=== PATIENT | male | born 1975 | race American Indian/Alaskan Native ===

== ENCOUNTER 2019-04-08 07:38 | Inpatient (IN) | payer MEDICAID ==
[2019-04-08] MEDS ORDERED: DECADRON 20 MG in NACL 0.9% 50 ML IV ONE (08:06)
[2019-04-08] MEDS ORDERED: PEPCID PO ONE (08:06)
[2019-04-08] MEDS ORDERED: BENADRYL IV ONE (08:06)
[2019-04-08] MEDS ORDERED: KETALAR IV ONE (08:07)
[2019-04-08] MEDS ORDERED: DIPRIVAN 10 MG/ML IV ONE ×2 (08:15→09:39)
[2019-04-08] MEDS ORDERED: PEPCID IV ONE (08:21)
[2019-04-08] MEDS: NORMODYNE IV ONE ×2 (08:28→08:53)
[2019-04-08] MEDS ORDERED: NORMODYNE IV ONE ×3 (08:29→09:20)
[2019-04-08] MEDS ORDERED: DIPRIVAN 10 MG/ML 1,000 MG/100 ML BOTTLE IV ONE ×2 (08:40→14:02)
[2019-04-08] MEDS: DIPRIVAN 10 MG/ML 1,000 MG/100 ML BOTTLE IV SCH ×2 (08:50→21:07)
[2019-04-08] MEDS: DIPRIVAN 10 MG/ML IV ONE ×2 (08:52→09:39)
[2019-04-08] MEDS ORDERED: SUBLIMAZE IV PRN (08:53)
[2019-04-08] MEDS: fentaNYL DRIP Premix 2,000 MCG/100 ML BAG IV SCH (09:47)
--- NOTE | 2019-04-08 09:53 | Emergency Department Report ---
ED General Adult HPI - General Chief complaint: Sore Throat Stated complaint: THROAT SWELLING/PAIN Time Seen by Provider: 04/08/19 07:59 Source: patient, family Mode of arrival: Ambulatory Limitations: Other - History of Present Illness Initial comments: 44 year old man who was apparently exposed to poison IV this week. He developed a rash and swelling by Tuesday. On Tuesday he had some facial puffiness and some swelling in his neck and apparent hives. By this morning the mother noted that the swelling of the neck was appreciably worse. She thinks that it is progressive since he woke up this morning. Patient is able to phonate and is not drooling. He has significant neck swelling especially on the right. He feels it is getting worse as well. Apparently he has some sort of developmental delay not otherwise specified. Mother states to be careful because if he becomes agitated he can get quite violent. Patient is not agitated at the time of my encounter. He is cooperative. -: Gradual, days(s) Location: face, neck, upper extremity Severity scale (0 -10): 0 Associated Symptoms: denies other symptoms - Related Data Allergies Allergy/AdvReac Type Severity Reaction Status Date / Time No Known Allergies Allergy Unverified 04/08/19 07:38 ED Review of Systems ROS: Stated complaint: THROAT SWELLING/PAIN Other details as noted in HPI Constitutional: denies: chills, fever Eyes: denies: eye pain, eye discharge, vision change ENT: denies: ear pain, throat pain Respiratory: denies: cough, shortness of breath, wheezing Cardiovascular: denies: chest pain, palpitations Endocrine: no symptoms reported Gastrointestinal: denies: abdominal pain, nausea, diarrhea Genitourinary: denies: urgency, dysuria Musculoskeletal: denies: back pain, joint swelling, arthralgia Skin: as per HPI, rash, lesions, pruritus, other Neurological: denies: headache, weakness, paresthesias Psychiatric: denies: anxiety, depression Hematological/Lymphatic: denies: easy bleeding, easy bruising ED Past Medical Hx - Past Medical History Additional medical history: SPECIAL NEEDS - Surgical History Past Surgical History?: No - Social History Smoking Status: Never Smoker Substance Use Type: None ED Physical Exam - General Limitations: Other General appearance: alert, in no apparent distress - Head Head exam: Present: atraumatic, normocephalic - Eye Eye exam: Present: normal appearance, periorbital swelling. Absent: scleral icterus - ENT ENT exam: Present: normal orophraynx (tongue is not swollen), mucous membranes moist, other (there is a bit of edema in the right soft palate and tonsillar area. The uvula is midline however and the airway is patent) - Neck Neck exam: Present: normal inspection, other (3+ edema submandibular and involving the right side of the neck somewhat indurated). Absent: tenderness, meningismus - Respiratory Respiratory exam: Present: normal lung sounds bilaterally. Absent: respiratory distress - Cardiovascular Cardiovascular Exam: Present: regular rate, normal rhythm. Absent: systolic murmur, diastolic murmur, rubs, gallop - GI/Abdominal GI/Abdominal exam: Present: soft, normal bowel sounds. Absent: distended, tenderness, guarding, rebound, rigid - Rectal Rectal exam: Present: deferred - Extremities Exam Extremities exam: Present: normal inspection - Back Exam Back exam: Present: normal inspection - Neurological Exam Neurological exam: Present: alert, oriented X3, CN II-XII intact. Absent: motor sensory deficit - Psychiatric Psychiatric exam: Present: normal affect, normal mood - Skin Skin exam: Present: warm, dry, intact, normal color, rash, other (diffuse urticaria and angioedema of the neck some of the throat) ED Course Vital Signs 04/08/19 04/08/19 04/08/19 07:39 08:28 08:53 Temperature 97.6 F Pulse Rate 98 H 132 H 111 H Respiratory 20 Rate Blood Pressure 214/120 210/111 179/102 O2 Sat by Pulse 99 Oximetry - Reevaluation(s) Reevaluation #1: It was decided that the patient undergo rapid sequence intubation electively. He was observed to have progressive swelling in the emergency department even over this short course of time pending intubation. He was placed in an acute care room. He was monitored. Informed consent was obtained from his mother verbally. With the patient continuously monitored and supplemental oxygen, I proceeded with the process of sedation. The patient required management of his blood pressure as well as labetalol. He was given ketamine which was well tolerated as well as propofol. He continued to have a fair amount of trismus. However although he had some snoring there was no obvious evidence of airway compromise. He was just given succinylcholine. Via direct laryngoscopy with a Mac 4 blade the patient was intubated without difficulty 7.5 Irish endotracheal tube. I remained at the head of the bed sheet closely manage the patient's sedation and hypertension. He was given a bolus propofol and additional labetalol. He never desaturated. A fentanyl drip was added to a propofol drip to achieve good sedation. He was admitted to the hospitalist service in stable condition. 4 04/08/19 09:54 04/08/19 09:58 - Intubation Time Out Performed: Yes Sedative: Versed (ketamine and propofol) Paralytic: Succinylcholine Laryngoscope: Lora Size: 4 ET Tube Size: 7.5 Tube Secured Depth (cm): 23 Tube Secured Location: teeth Tube Placement Confirmation: visualized tube passing t Patient Tolerated Procedure: well Intubation Complications: none ED Medical Decision Making - Radiology Data Radiology results: image reviewed (endotracheal tube below the head of the clavicles in good position. No acute pulmonary process seen) Critical Care Time: Yes Critical care time in (mins) excluding proc time.: 90 Critical care attestation.: If time is entered above; I have spent that time in minutes in the direct care of this critically ill patient, excluding procedure time. ED Disposition Clinical Impression: Compromised airway Angioedema Qualifiers: Encounter type: initial encounter Qualified Code(s): T78.3XXA - Angioneurotic edema, initial encounter Disposition: OP ADMIT IP TO THIS HOSP Is pt being admited?: Yes Does the pt Need Aspirin: No Condition: Stable Referrals: SYLVESTER MORAN MD [Primary Care Provider] - 3-5 Days Time of Disposition: 10:25
[2019-04-08] MEDS ORDERED: VERSED IV NR (10:00)
[2019-04-08] MEDS ORDERED: QUELICIN IV ONE (10:01)
[2019-04-08] MEDS ORDERED: ARTIFICIAL TEARS OPHTH OINT OU PRN (10:04)
[2019-04-08] MEDS ORDERED: VASELINE LIP THERAPY TP PRN (10:04)
[2019-04-08] MEDS ORDERED: SODIUM CHLORIDE FLUSH SYRINGE 10 ML IV PRN (10:40)
[2019-04-08] MEDS ORDERED: MORPHINE IV PRN (10:40)
[2019-04-08] MEDS ORDERED: TYLENOL PO PRN (10:40)
[2019-04-08 10:42] LABS: Basophils % (Auto) 0.4 % (0.0-1.8); Eosinophils # (Auto) 0.1 K/mm3 (0.0-0.4); Eosinophils % (Auto) 2.8 % (0.0-4.3); Hematocrit 39.7 % (35.5-45.6); Hemoglobin 13.5 gm/dl (11.8-15.2); Lymphocytes # (Auto) 0.7 K/mm3 (1.2-5.4); Lymphocytes % (Auto) 16.6 % (13.4-35.0); Mean Corpuscular HGB Conc 34 % (32-34); Mean Corpuscular Volume 79 fl (84-94); Monocytes # (Auto) 0.2 K/mm3 (0.0-0.8); Monocytes % (Auto) 5.4 % (0.0-7.3); Platelet Count 322 K/mm3 (140-440); Red Blood Count 5.06 M/mm3 (3.65-5.03); Red Cell Distribution Width 15.3 % (13.2-15.2)
--- NOTE | 2019-04-08 10:46 | History and Physical Report ---
History of Present Illness Chief complaint: Allergic reaction, trouble breathing and drooling History of present illness: 44-year-old man who was exposed to poison jenny earlier this week. The patient has developmental delay and is mentally retarded, he lives with his mother. Apparently he had poison jenny exposure after which she had some facial puffiness and swelling in the neck and hives. The mother then noted that his tongue was swollen his neck was more swollen he was getting worse. He was not able to speak and was drooling therefore she brought him into the hospital. Past medical history; mental retardation/special needs Surgical history; no major surgeries X Social history no history of tobacco alcohol or illicit drug abuse, lives with mother Family history hypertension Medications and Allergies Allergies Allergy/AdvReac Type Severity Reaction Status Date / Time No Known Allergies Allergy Unverified 04/08/19 07:38 Home Medications Medication Instructions Recorded Confirmed Last Taken Type Calamine/Zinc 8-8% [Calamine] 1 applic TP PRN PRN #1 bottle 04/14/19 Unknown Rx Metoprolol [Lopressor TAB] 12.5 mg PO BID #60 tablet 04/14/19 Unknown Rx Active Meds: Active Medications Fentanyl (Sublimaze) 50 mcg IV Q10MIN PRN PRN Reason: ANALGESIA Hydrophilic Ointment (Vaseline Lip Therapy) 1 applic TP Q2HR PRN PRN Reason: Dry Lips Fentanyl Citrate (Fentanyl Drip Premix) 2,000 mcg in 100 mls @ 4.365 mls/hr IV TITR JAIME; Protocol Last Titration: 04/08/19 10:15 Dose: 2 mcg/kg/hr, 8.73 mls/hr Documented by: Propofol (Diprivan 10 Mg/Ml) 1,000 mg in 100 mls @ 2.619 mls/hr IV TITR JAIME; Protocol Last Titration: 04/08/19 09:15 Dose: 35 mcg/kg/min, 18.333 mls/hr Documented by: Midazolam HCl (Versed) 5 mg IV ONCE NR Stop: 04/08/19 23:59 Last Admin: 04/08/19 08:53 Dose: 5 mg Documented by: Multi-Ingred Cream/Lotion/Oil/Oint (Artificial Tears Ophth Oint) 1 applic OU Q4HR PRN PRN Reason: Dry Eye(s) Review of Systems All systems: negative Constitutional: no weight loss Ears, nose, mouth and throat: no deferred Cardiovascular: no chest pain Respiratory: no cough Gastrointestinal: no abdominal pain Genitourinary Male: no dysuria Rectal: no pain Musculoskeletal: no neck stiffness Integumentary: rash, pruritis Neurological: no head injury Psychiatric: no anxiety Endocrine: no cold intolerance Hematologic/Lymphatic: no easy bruising Allergic/Immunologic: urticaria, angioedema Exam - Constitutional Vitals: Temp Pulse Resp BP Pulse Ox 97.6 F 111 H 20 179/102 99 04/08/19 07:39 04/08/19 08:53 04/08/19 07:39 04/08/19 08:53 04/08/19 07:39 General appearance: Present: no acute distress, well-nourished - EENT Eyes: Present: PERRL ENT: hearing intact, clear oral mucosa, other (enlarged and swollen tongue) - Neck Neck: Present: supple (swollen), normal ROM - Respiratory Respiratory effort: normal Respiratory: bilateral: CTA - Cardiovascular Heart Sounds: Present: S1 & S2. Absent: rub, click - Extremities Extremities: pulses symmetrical, No edema Peripheral Pulses: within normal limits - Abdominal General gastrointestinal: Present: soft, non-tender, non-distended, normal bowel sounds Male genitourinary: Present: normal - Integumentary Integumentary: Present: clear (rash all over), warm, dry - Musculoskeletal Musculoskeletal: gait normal, strength equal bilaterally - Psychiatric Psychiatric: agitated - Neurologic Neurologic: moves all extremities, other (intubated and partially sedated) Results - Labs CBC & Chem 7: 04/09/19 04:54 04/09/19 04:54 Assessment and Plan Assessment and plan: 44-year-old man who presented with worsening angioedema and airway compromise, intubated for airway protection Acute respiratory failure on mechanical ventilator < 96 hours Continue vent Anaphylaxis/angioedema Steroids, H1 patel, H2 patel Malignant hypertension with hypertensive emergency We'll give IV hydralazine for now, it does not improve we'll give nicardipine drip Developmental delay His mother he has a tendency to become agitated and combative, positive care Critical care time 35 minutes DVT prophylaxis with Lovenox
[2019-04-08 10:51] LABS: INR 1.09 (0.87-1.13)
[2019-04-08 10:52] LABS: Partial Thromboplastin Time 30.7 Sec. (24.2-36.6)
[2019-04-08 11:06] LABS: Creatine Kinase MB 1.2 ng/mL (0.0-4.0)
[2019-04-08 11:08] LABS: Alanine Aminotransferase 13 units/L (7-56); Albumin 3.7 g/dL (3.9-5); BUN/Creatinine Ratio 14; Blood Urea Nitrogen 11 mg/dL (9-20); Calcium 8.7 mg/dL (8.4-10.2); Hemolysis Index 6
[2019-04-08 11:16] LABS: Bilirubin,Direct < 0.2 mg/dL (0-0.2)
--- NOTE | 2019-04-08 11:19 | XRay Report ---
PROCEDURE: XR CHEST 1V AP TECHNIQUE: Chest radiograph single view. HISTORY: ETT placement FINDINGS: Single frontal view of the chest was acquired. The heart is mildly large. There is an endot lizet tube with its tip in appropriate position. There is a nasogastric tube with its tip in the ga stric fundus. There is no consolidative infiltrate. IMPRESSION: The endotracheal tube lies in appropriate position This document is electronically signed by Tyler Maldonado MD., April 08 2019 11:17:43 AM ET
[2019-04-08] MEDS: BENADRYL IV SCH ×2 (11:50→23:13)
[2019-04-08] MEDS: PEPCID IV SCH ×2 (11:51→21:10)
[2019-04-08 14:01] LABS: Bilirubin,Urine NEG (Negative); Blood,Urine NEG (Negative); Color,Urine Yellow (Yellow); Mucus,Urine FEW /HPF; Protein,Urine <15 mg/dL mg/dL (Negative); Urobilinogen,Urine < 2.0 mg/dL (<2.0)
[2019-04-08] MEDS ORDERED: SOLU-Medrol ONE (14:57)
[2019-04-08] MEDS: SOLU-Medrol IV SCH ×2 (15:01→21:10)
[2019-04-08] MEDS ORDERED: CALAMINE TP PRN (16:42)
[2019-04-08] MEDS ORDERED: fentaNYL DRIP Premix 2,000 MCG/100 ML BAG IV ONE (17:10)
[2019-04-08] MEDS ORDERED: KETALAR ONE (19:14)
[2019-04-08] MEDS ORDERED: VERSED IV ONE (19:14)
[2019-04-08] MEDS ORDERED: QUELICIN ONE (19:14)
[2019-04-08] MEDS: SODIUM CHLORIDE FLUSH SYRINGE 10 ML IV SCH (21:11)
[2019-04-09] MEDS: fentaNYL DRIP Premix 2,000 MCG/100 ML BAG IV SCH ×4 (01:46→21:37)
[2019-04-09] MEDS: DIPRIVAN 10 MG/ML 1,000 MG/100 ML BOTTLE IV SCH ×3 (01:47→16:39)
--- NOTE | 2019-04-09 04:09 | XRay Report ---
PROCEDURE: XR CHEST 1V AP TECHNIQUE: Chest radiograph single view. HISTORY: follow up respiratory failure COMPARISONS: 04/08/2019 . FINDINGS: Endotracheal tube terminates around 6 cm from the marah. Enteric tube terminates in the stomach with distal side port below the gastroesophageal junction. No mediastinal shift. Cardiac silhouette is no t enlarged. No pneumothorax, effusion, or focal pulmonary opacity identified. Linear bibasilar atelec tasis. No acute skeletal findings. IMPRESSION: Satisfactory appearance of the patient's support apparatus without pneumothorax. Improved aeration of the lungs compared to 04/08/2019. This document is electronically signed by Yann Velazquez MD., April 09 2019 04:07:25 AM ET
[2019-04-09 05:27] LABS: Basophils % (Auto) 0.1 % (0.0-1.8); Hematocrit 38.2 % (35.5-45.6); Hemoglobin 12.8 gm/dl (11.8-15.2); Lymphocytes # (Auto) 0.8 K/mm3 (1.2-5.4); Lymphocytes % (Auto) 17.1 % (13.4-35.0); Mean Corpuscular HGB Conc 33 % (32-34); Mean Corpuscular Volume 80 fl (84-94); Monocytes # (Auto) 0.2 K/mm3 (0.0-0.8); Monocytes % (Auto) 4.9 % (0.0-7.3); Platelet Count 279 K/mm3 (140-440); Red Blood Count 4.77 M/mm3 (3.65-5.03); Red Cell Distribution Width 15.7 % (13.2-15.2)
[2019-04-09 05:45] LABS: BUN/Creatinine Ratio 16; Blood Urea Nitrogen 21 mg/dL (9-20); Calcium 8.7 mg/dL (8.4-10.2); Chol/HDL Ratio 4.65 %; HDL Cholesterol 43 mg/dL (40-59); Hemolysis Index 3; LDL Cholesterol,Direct 145 mg/dL (50-130)
[2019-04-09] MEDS: SOLU-Medrol IV SCH ×3 (06:34→21:29)
[2019-04-09] MEDS: BENADRYL IV SCH ×3 (06:35→17:25)
[2019-04-09] MEDS: ZOFRAN IV PRN (09:40)
[2019-04-09] MEDS: SODIUM CHLORIDE FLUSH SYRINGE 10 ML IV SCH (10:00)
[2019-04-09] MEDS: LOVENOX SUB-Q SCH (10:22)
[2019-04-09] MEDS: PEPCID IV SCH ×2 (10:23→21:30)
--- NOTE | 2019-04-09 12:09 | Consultation ---
History of Present Illness Consult date: 04/09/19 Requesting physician: AUBRIE NUR History of present illness: PULMONARY/CCM CONSULT NOTE (Full dictation # [id number]) Please see dictated notes for full details Medications and Allergies Allergies Allergy/AdvReac Type Severity Reaction Status Date / Time No Known Allergies Allergy Unverified 04/08/19 07:38 Home Medications Medication Instructions Recorded Confirmed Last Taken Type No Known Home Medications [No 04/09/19 04/09/19 Unknown History Reported Home Medications] Active Meds: Active Medications Acetaminophen (Tylenol) 650 mg PO Q4H PRN PRN Reason: Pain MILD(1-3)/Fever >100.5/MAC Calamine (Calamine) 1 applic TP PRN PRN PRN Reason: Allergic Reaction Diphenhydramine HCl (Benadryl) 25 mg IV Q6H [facility] Last Admin: 04/09/19 10:23 Dose: 25 mg Documented by: Enoxaparin Sodium (Lovenox) 40 mg SUB-Q QDAY [facility] Last Admin: 04/09/19 10:22 Dose: 40 mg Documented by: Famotidine (Pepcid) 20 mg IV BID [facility] Last Admin: 04/09/19 10:23 Dose: 20 mg Documented by: Fentanyl (Sublimaze) 50 mcg IV Q10MIN PRN PRN Reason: ANALGESIA Hydralazine HCl (Apresoline) 10 mg IV Q4HR PRN PRN Reason: BP >160/100 Hydrophilic Ointment (Vaseline Lip Therapy) 1 applic TP Q2HR PRN PRN Reason: Dry Lips Fentanyl Citrate (Fentanyl Drip Premix) 2,000 mcg in 100 mls @ 4.365 mls/hr IV TITR JAIME; Protocol Last Titration: 04/09/19 11:18 Dose: 4 mcg/kg/hr, 17.46 mls/hr Documented by: Propofol (Diprivan 10 Mg/Ml) 1,000 mg in 100 mls @ 2.619 mls/hr IV TITR JAIME; Protocol Last Titration: 04/09/19 09:23 Dose: 30 mcg/kg/min, 16 mls/hr Documented by: Methylprednisolone Sodium Succinate (Solu-Medrol) 80 mg IV Q8HR JAIME Last Admin: 04/09/19 06:34 Dose: 80 mg Documented by: Morphine Sulfate (Morphine) 2 mg IV Q4H PRN PRN Reason: Pain, Moderate (4-6) Multi-Ingred Cream/Lotion/Oil/Oint (Artificial Tears Ophth Oint) 1 applic OU Q4HR PRN PRN Reason: Dry Eye(s) Ondansetron HCl (Zofran) 4 mg IV Q8H PRN PRN Reason: Nausea And Vomiting Last Admin: 04/09/19 09:40 Dose: 4 mg Documented by: Sodium Chloride (Sodium Chloride Flush Syringe 10 Ml) 10 ml IV BID JAIME Last Admin: 04/09/19 10:00 Dose: 10 ml Documented by: Sodium Chloride (Sodium Chloride Flush Syringe 10 Ml) 10 ml IV PRN PRN PRN Reason: LINE FLUSH Physical Examination Vital signs: Vital Signs Temp Pulse Resp BP Pulse Ox 97.6 F 98 H 20 214/120 99 04/08/19 07:39 04/08/19 07:39 04/08/19 07:39 04/08/19 07:39 04/08/19 07:39 Results - Laboratory Findings CBC and BMP: 04/09/19 04:54 04/09/19 04:54 ABG POC ABG pH 7.390 (7.35-7.45) 04/09/19 04:26 POC ABG pCO2 40.9 (35-45) 04/09/19 04:26 POC ABG pO2 116 (80-105) H 04/09/19 04:26 POC ABG HCO3 24.8 (22-26 mml/L) 04/09/19 04:26 POC ABG Total CO2 26 (23-27mmol/L) 04/09/19 04:26 POC ABG O2 Sat 98 04/09/19 04:26 PT/INR, D-dimer PT 13.8 Sec. (12.2-14.9) 04/08/19 10:24 INR 1.09 (0.87-1.13) 04/08/19 10:24 Abnormal lab findings: Abnormal Labs 04/08/19 04/08/19 04/08/19 10:24 10:24 11:32 WBC 4.3 L RBC 5.06 H MCV 79 L MCH 27 L RDW 15.3 H Lymph # 0.7 L Seg Neutrophils % 74.8 H POC ABG pH 7.281 L POC ABG pCO2 56.3 H POC ABG pO2 155 H BUN Glucose 127 H POC Glucose Albumin 3.7 L Cholesterol LDL Cholesterol Direct 04/08/19 04/08/19 04/09/19 15:59 18:44 04:26 WBC RBC MCV MCH RDW Lymph # Seg Neutrophils % POC ABG pH POC ABG pCO2 POC ABG pO2 116 H BUN Glucose POC Glucose 145 H 149 H Albumin Cholesterol LDL Cholesterol Direct 04/09/19 04/09/19 04:54 04:54 WBC RBC MCV 80 L MCH 27 L RDW 15.7 H Lymph # 0.8 L Seg Neutrophils % 77.9 H POC ABG pH POC ABG pCO2 POC ABG pO2 BUN 21 H Glucose 158 H POC Glucose Albumin Cholesterol 200 H LDL Cholesterol Direct 145 H
[2019-04-09] MEDS ORDERED: PROVENTIL IH PRN (12:47)
--- NOTE | 2019-04-09 17:51 | XRay Report ---
PROCEDURE: XR ABDOMEN 1V AP TECHNIQUE: Abdominal radiograph, single view. HISTORY: vomiting COMPARISONS: X-ray chest also performed today . FINDINGS: Visualization of detail in the abdomen on the right is significantly limited by artifact created by s omething extrinsic to the patient. The entirety of the upper abdomen is not imaged. The bowel gas pattern is nonobstructive with air in mildly distended transverse and descending colon. There is no definite evidence of pneumoperitoneum in the visualized portion of the abdomen and pelvis . The bony structures are unremarkable. IMPRESSION: 1. Nonobstructive bowel gas pattern. If there is a clinical suspicion of an acute intra-abdominal process, CT imaging may be helpful. 2. Study limited by artifact. This document is electronically signed by Nathalie Mariee MD., April 09 2019 05:49:01 PM ET
[2019-04-10] MEDS: DIPRIVAN 10 MG/ML 1,000 MG/100 ML BOTTLE IV SCH ×4 (00:34→18:03)
[2019-04-10] MEDS: BENADRYL IV SCH ×6 (02:13→23:15)
[2019-04-10] MEDS: fentaNYL DRIP Premix 2,000 MCG/100 ML BAG IV SCH ×4 (03:03→17:37)
--- NOTE | 2019-04-10 04:25 | XRay Report ---
PROCEDURE: XR CHEST 1V AP TECHNIQUE: Chest radiograph single view. HISTORY: follow up respiratory failure COMPARISONS: 04/09/2019 . FINDINGS: Heart: Normal. Mediastinum/Vessels: Normal. Lungs/Pleural space: There are mild atelectatic changes in the left lung base. There are no infiltra anne or effusions. The lungs are not congested.. Bony thorax: No acute osseous abnormality. Life support devices: The ET tube and NG tube appear in good position.. IMPRESSION: Mild atelectatic changes in the left lung base. Satisfactory position of the ET tube and NG tube.. This document is electronically signed by Ronny Doyle MD., April 10 2019 04:24:02 AM ET
[2019-04-10] MEDS: SOLU-Medrol IV SCH ×2 (06:23→21:19)
[2019-04-10] MEDS: SODIUM CHLORIDE FLUSH SYRINGE 10 ML IV SCH ×2 (06:31→09:38)
--- NOTE | 2019-04-10 06:58 | Progress Note ---
Assessment and Plan Assessment and plan: 44-year-old man who presented with worsening angioedema and airway compromise, intubated for airway protection Acute respiratory failure on mechanical ventilator < 96 hours Continue vent Anaphylaxis/angioedema Steroids, H1 patel, H2 patel, improving Malignant hypertension with hypertensive emergency optimize bp meds Autism cont supportive care DVT prophylaxis with Lovenox CCT 33 minutes History Interval history: Continues to be ventilator dependent, has been agitated, but improves his sedation Facial and neck swelling appears to be coming down, patient still has rash on face and neck Hospitalist Physical - Physical exam Narrative exam: General appearance: Present: no acute distress, well-nourished - EENT Eyes: Present: PERRL ENT: hearing intact, clear oral mucosa, other (enlarged and swollen tongue) - Neck Neck: Present: supple (swollen), normal ROM - Respiratory Respiratory effort: normal Respiratory: bilateral: CTA - Cardiovascular Heart Sounds: Present: S1 & S2. Absent: rub, click - Extremities Extremities: pulses symmetrical, No edema Peripheral Pulses: within normal limits - Abdominal General gastrointestinal: Present: soft, non-tender, non-distended, normal bowel sounds Male genitourinary: Present: normal - Integumentary Integumentary: Present: clear (rash all over), warm, dry - Musculoskeletal Musculoskeletal: gait normal, strength equal bilaterally - Psychiatric Psychiatric: agitated - Neurologic Neurologic: moves all extremities, other (intubated and partially sedated) - Constitutional Vitals: Temp Pulse Resp BP Pulse Ox 98.4 F 84 20 132/77 99 04/10/19 02:42 04/10/19 06:30 04/10/19 06:30 04/10/19 06:30 04/10/19 06:30 Results - Labs CBC & Chem 7: 04/09/19 04:54 04/09/19 04:54 Labs: Laboratory Last Values WBC 4.6 K/mm3 (4.5-11.0) 04/09/19 04:54 RBC 4.77 M/mm3 (3.65-5.03) 04/09/19 04:54 Hgb 12.8 gm/dl (11.8-15.2) 04/09/19 04:54 Hct 38.2 % (35.5-45.6) 04/09/19 04:54 MCV 80 fl (84-94) L 04/09/19 04:54 MCH 27 pg (28-32) L 04/09/19 04:54 MCHC 33 % (32-34) 04/09/19 04:54 RDW 15.7 % (13.2-15.2) H 04/09/19 04:54 Plt Count 279 K/mm3 (140-440) 04/09/19 04:54 Lymph % (Auto) 17.1 % (13.4-35.0) 04/09/19 04:54 [place] % (Auto) 4.9 % (0.0-7.3) 04/09/19 04:54 Eos % (Auto) 0.0 % (0.0-4.3) 04/09/19 04:54 Baso % (Auto) 0.1 % (0.0-1.8) 04/09/19 04:54 Lymph # 0.8 K/mm3 (1.2-5.4) L 04/09/19 04:54 [place] # 0.2 K/mm3 (0.0-0.8) 04/09/19 04:54 Eos # 0.0 K/mm3 (0.0-0.4) 04/09/19 04:54 Baso # 0.0 K/mm3 (0.0-0.1) 04/09/19 04:54 Seg Neutrophils % 77.9 % (40.0-70.0) H 04/09/19 04:54 Seg Neutrophils # 3.6 K/mm3 (1.8-7.7) 04/09/19 04:54 PT 13.8 Sec. (12.2-14.9) 04/08/19 10:24 INR 1.09 (0.87-1.13) 04/08/19 10:24 APTT 30.7 Sec. (24.2-36.6) 04/08/19 10:24 POC ABG pH 7.243 (7.35-7.45) L 04/10/19 05:25 POC ABG pCO2 69.5 (35-45) H 04/10/19 05:25 POC ABG pO2 124 (80-105) H 04/10/19 05:25 POC ABG HCO3 30.0 (22-26 mml/L) 04/10/19 05:25 POC ABG Total CO2 32 (23-27mmol/L) 04/10/19 05:25 POC ABG O2 Sat 98 04/10/19 05:25 POC ABG Base Excess 3 ((-2) - (+3)mmol/L) 04/10/19 05:25 40 % 04/10/19 05:25 Sodium 138 mmol/L (137-145) 04/09/19 04:54 Potassium 4.3 mmol/L (3.6-5.0) 04/09/19 04:54 Chloride 100.3 mmol/L (98-107) 04/09/19 04:54 Carbon Dioxide 24 mmol/L (22-30) 04/09/19 04:54 18 mmol/L 04/09/19 04:54 BUN 21 mg/dL (9-20) H 04/09/19 04:54 1.3 mg/dL (0.8-1.5) D 04/09/19 04:54 Estimated GFR > 60 ml/min 04/09/19 04:54 16 % 04/09/19 04:54 Glucose 158 mg/dL (75-100) H 04/09/19 04:54 POC Glucose 149 (70-105) H 04/08/19 18:44 5.7 % (4-6) 04/09/19 04:54 Calcium 8.7 mg/dL (8.4-10.2) 04/09/19 04:54 Magnesium 2.00 mg/dL (1.7-2.3) 04/08/19 10:24 0.70 mg/dL (0.1-1.2) 04/08/19 10:24 < 0.2 mg/dL (0-0.2) 04/08/19 10:24 0.5 mg/dL 04/08/19 10:24 AST 11 units/L (5-40) 04/08/19 10:24 ALT 13 units/L (7-56) 04/08/19 10:24 75 units/L (35-129) 04/08/19 10:24 76 units/L (55-170) 04/08/19 10:24 CK-MB (CK-2) 1.2 ng/mL (0.0-4.0) 04/08/19 10:24 CK-MB (CK-2) Rel Index 1.5 (0-4) 04/08/19 10:24 < 0.010 ng/mL (0.00-0.029) 04/08/19 10:24 NT-Pro-B Natriuret Pep 52.03 pg/mL (0-450) 04/08/19 10:24 6.8 g/dL (6.3-8.2) 04/08/19 10:24 3.7 g/dL (3.9-5) L 04/08/19 10:24 1.2 % 04/08/19 10:24 Triglycerides 94 mg/dL (2-149) 04/09/19 04:54 Cholesterol 200 mg/dL (50-199) H 04/09/19 04:54 145 mg/dL (50-130) H 04/09/19 04:54 43 mg/dL (40-59) 04/09/19 04:54 4.65 % 04/09/19 04:54 Yellow (Yellow) 04/08/19 Unknown Clear (Clear) 04/08/19 Unknown 5.0 (5.0-7.0) 04/08/19 Unknown Ur Specific [place] 1.011 (1.003-1.030) 04/08/19 Unknown <15 mg/dl mg/dL (Negative) 04/08/19 Unknown Neg mg/dL (Negative) 04/08/19 Unknown Neg mg/dL (Negative) 04/08/19 Unknown Neg (Negative) 04/08/19 Unknown Neg (Negative) 04/08/19 Unknown Neg (Negative) 04/08/19 Unknown < 2.0 mg/dL (<2.0) 04/08/19 Unknown Ur Leukocyte Esterase Tr (Negative) 04/08/19 Unknown 4.0 /HPF (0.0-6.0) 04/08/19 Unknown 2.0 /HPF (0.0-6.0) 04/08/19 Unknown Few /HPF 04/08/19 Unknown Active Medications - Current Medications Current Medications: Generic Name Dose Route Start Last Admin Trade Name Freq PRN Reason Stop Dose Admin Acetaminophen 650 mg 04/08/19 10:40 Tylenol PO Q4H PRN Pain MILD(1-3)/Fever >100.5/MAC Albuterol 2.5 mg 04/09/19 12:47 Proventil IH Q6HRT PRN Shortness Of Breath Calamine 1 applic 04/08/19 16:42 Calamine TP PRN PRN Allergic Reaction Diphenhydramine HCl 25 mg 04/08/19 11:00 04/10/19 06:22 Benadryl IV 25 mg Q6H JAIME Administration Enoxaparin Sodium 40 mg 04/09/19 10:00 04/09/19 10:22 Lovenox SUB-Q 40 mg QDAY JAIME Administration Famotidine 20 mg 04/08/19 11:00 04/09/19 21:30 Pepcid IV 20 mg BID [facility] Administration Fentanyl 50 mcg 04/08/19 08:53 Sublimaze IV Q10MIN PRN ANALGESIA Hydralazine HCl 10 mg 04/08/19 10:47 Apresoline IV Q4HR PRN BP >160/100 Hydrophilic Ointment 1 applic 04/08/19 10:04 Vaseline Lip Therapy TP Q2HR PRN Dry Lips Fentanyl Citrate 2,000 mcg in 100 mls @ 4.365 mls/hr 04/08/19 09:00 04/10/19 03:03 Fentanyl Drip Premix IV 4 mcg/kg/hr TITR JAIME 17.46 mls/hr Administration Protocol 1 MCG/KG/HR Propofol 1,000 mg in 100 mls @ 2.619 mls/hr 04/08/19 11:00 04/10/19 00:34 Diprivan 10 Mg/Ml IV 35 mcg/kg/min TITR JAIME 18 mls/hr Administration Protocol 5 MCG/KG/MIN Methylprednisolone Sodium Succinate 80 mg 04/08/19 14:00 04/10/19 06:23 Solu-Medrol IV 80 mg Q8HR [facility] Administration Morphine Sulfate 2 mg 04/08/19 10:40 Morphine IV Q4H PRN Pain, Moderate (4-6) Multi-Ingred Cream/Lotion/Oil/Oint 1 applic 04/08/19 10:04 Artificial Tears Ophth Oint OU Q4HR PRN Dry Eye(s) Ondansetron HCl 4 mg 04/08/19 10:40 04/09/19 09:40 Zofran IV 4 mg Q8H PRN Administration Nausea And Vomiting Sodium Chloride 10 ml 04/08/19 22:00 04/10/19 06:31 Sodium Chloride Flush Syringe 10 Ml IV 10 ml BID JAIME Administration Sodium Chloride 10 ml 04/08/19 10:40 Sodium Chloride Flush Syringe 10 Ml IV PRN PRN LINE FLUSH Nutrition/Malnutrition Assess - Dietary Evaluation Nutrition/Malnutrition Findings: Nutrition Notes Start: 04/09/19 16:13 Freq: Status: Active Protocol: Document 04/09/19 16:13 RM (Rec: 04/09/19 16:26 RM [id number]) Nutrition Notes Need for Assessment generated from: MD Order Initial or Follow up Assessment Current Diagnosis Hypertension,Respiratory Failure Other Pertinent Diagnosis Angioedema Current Diet No diet ordered Labs/Tests A1c 5.7 Pertinent Medications Solu-Medrol, Propofol @ 8 ml/ hr (211 kcal) Height 5 ft 6 in Weight 87.3 kg [place] Body Weight (kg) 64.54 BMI 31.0 Subjective/Other Information Consulted for evaluate nutritional intake. Pt on vent. Burn Absent Trauma Absent #1 Nutrition Diagnosis Inadequate oral intake Etiology on vent As Evidenced by Signs and Symptoms NPO status Is patient on ventilator? Yes Is Patient Ambulatory and/or Out of Bed No REE-([facility]-confined to bed) 2038.272 Kcal/Kg value to use for calculation 18 Approximate Energy Requirements Using 1571 kcal/Kg Calculation Used for Recommendations Kcal/kg Additional Notes Protein Needs: 129g (2g/kg IBW ) Fluid Needs: 1 ml/kcal Nutrition Intervention Change Diet Order: TF consult Nutrition Support: Vital 1.2 at 60 ml/hr. Water flush of 100 mls q 4 hrs . Kcal 1,728 Protein (gm) 108 Fluid (mL) 1,168 Goal #1 TF consult Anticipated Discharge Needs: Unable to determine at this time Follow-Up By: 04/11/19 Additional Comments Follow for TF consult
--- NOTE | 2019-04-10 08:17 | Progress Note ---
Assessment and Plan Assessment and plan: Patient is a 44-year-old man who presented with worsening angioedema and airway compromise, intubated for airway protection Acute respiratory failure on mechanical ventilator < 96 hours Continue vent Anaphylaxis/angioedema Steroids, H1 patel, H2 patel, improving Malignant hypertension with hypertensive emergency optimize bp meds Autism cont supportive care DVT prophylaxis with Lovenox CCT 33 minutes History Interval history: Patient was seen and examined. Follow-up on current diagnosis Resp failure. No overnight events reported to me. Imaging, nursing note, chart, labs and old chart reviewed. Discussed with nurse Hospitalist Physical - Physical exam Narrative exam: Gen: ill appearing intubated and sedated HEENT: NCAT, EOMI, PERRL, OP ett Neck: supple, swollen bilateral neck CVS/Heart: RRR, normal S1S2, pulses present bilaterally Chest/Lungs: CTA B, Symmetrical chest expansion, good air entry bilaterally GI/Abdomen: soft, NTND, good bowel sounds, no guarding or rebound /Bladder: no suprapubic tenderness, no CVA or paraspinal tenderness Extermity/Skin: neck swelling, obvious rash face MSK: intubated and sedated Neuro: intubated and sedated Psych: intubated and sedated - Constitutional Vitals: Temp Pulse Resp BP Pulse Ox 98.4 F 81 12 128/74 98 04/10/19 02:42 04/10/19 07:20 04/10/19 07:20 04/10/19 07:20 04/10/19 07:20 Results - Labs CBC & Chem 7: 04/09/19 04:54 04/09/19 04:54 Labs: Laboratory Last Values WBC 4.6 K/mm3 (4.5-11.0) 04/09/19 04:54 RBC 4.77 M/mm3 (3.65-5.03) 04/09/19 04:54 Hgb 12.8 gm/dl (11.8-15.2) 04/09/19 04:54 Hct 38.2 % (35.5-45.6) 04/09/19 04:54 MCV 80 fl (84-94) L 04/09/19 04:54 MCH 27 pg (28-32) L 04/09/19 04:54 MCHC 33 % (32-34) 04/09/19 04:54 RDW 15.7 % (13.2-15.2) H 04/09/19 04:54 Plt Count 279 K/mm3 (140-440) 04/09/19 04:54 Lymph % (Auto) 17.1 % (13.4-35.0) 04/09/19 04:54 [place] % (Auto) 4.9 % (0.0-7.3) 04/09/19 04:54 Eos % (Auto) 0.0 % (0.0-4.3) 04/09/19 04:54 Baso % (Auto) 0.1 % (0.0-1.8) 04/09/19 04:54 Lymph # 0.8 K/mm3 (1.2-5.4) L 04/09/19 04:54 [place] # 0.2 K/mm3 (0.0-0.8) 04/09/19 04:54 Eos # 0.0 K/mm3 (0.0-0.4) 04/09/19 04:54 Baso # 0.0 K/mm3 (0.0-0.1) 04/09/19 04:54 Seg Neutrophils % 77.9 % (40.0-70.0) H 04/09/19 04:54 Seg Neutrophils # 3.6 K/mm3 (1.8-7.7) 04/09/19 04:54 PT 13.8 Sec. (12.2-14.9) 04/08/19 10:24 INR 1.09 (0.87-1.13) 04/08/19 10:24 APTT 30.7 Sec. (24.2-36.6) 04/08/19 10:24 POC ABG pH 7.243 (7.35-7.45) L 04/10/19 05:25 POC ABG pCO2 69.5 (35-45) H 04/10/19 05:25 POC ABG pO2 124 (80-105) H 04/10/19 05:25 POC ABG HCO3 30.0 (22-26 mml/L) 04/10/19 05:25 POC ABG Total CO2 32 (23-27mmol/L) 04/10/19 05:25 POC ABG O2 Sat 98 04/10/19 05:25 POC ABG Base Excess 3 ((-2) - (+3)mmol/L) 04/10/19 05:25 40 % 04/10/19 05:25 Sodium 138 mmol/L (137-145) 04/09/19 04:54 Potassium 4.3 mmol/L (3.6-5.0) 04/09/19 04:54 Chloride 100.3 mmol/L (98-107) 04/09/19 04:54 Carbon Dioxide 24 mmol/L (22-30) 04/09/19 04:54 18 mmol/L 04/09/19 04:54 BUN 21 mg/dL (9-20) H 04/09/19 04:54 1.3 mg/dL (0.8-1.5) D 04/09/19 04:54 Estimated GFR > 60 ml/min 04/09/19 04:54 16 % 04/09/19 04:54 Glucose 158 mg/dL (75-100) H 04/09/19 04:54 POC Glucose 149 (70-105) H 04/08/19 18:44 5.7 % (4-6) 04/09/19 04:54 Calcium 8.7 mg/dL (8.4-10.2) 04/09/19 04:54 Magnesium 2.00 mg/dL (1.7-2.3) 04/08/19 10:24 0.70 mg/dL (0.1-1.2) 04/08/19 10:24 < 0.2 mg/dL (0-0.2) 04/08/19 10:24 0.5 mg/dL 04/08/19 10:24 AST 11 units/L (5-40) 04/08/19 10:24 ALT 13 units/L (7-56) 04/08/19 10:24 75 units/L (35-129) 04/08/19 10:24 76 units/L (55-170) 04/08/19 10:24 CK-MB (CK-2) 1.2 ng/mL (0.0-4.0) 04/08/19 10:24 CK-MB (CK-2) Rel Index 1.5 (0-4) 04/08/19 10:24 < 0.010 ng/mL (0.00-0.029) 04/08/19 10:24 NT-Pro-B Natriuret Pep 52.03 pg/mL (0-450) 04/08/19 10:24 6.8 g/dL (6.3-8.2) 04/08/19 10:24 3.7 g/dL (3.9-5) L 04/08/19 10:24 1.2 % 04/08/19 10:24 Triglycerides 94 mg/dL (2-149) 04/09/19 04:54 Cholesterol 200 mg/dL (50-199) H 04/09/19 04:54 145 mg/dL (50-130) H 04/09/19 04:54 43 mg/dL (40-59) 04/09/19 04:54 4.65 % 04/09/19 04:54 Yellow (Yellow) 04/08/19 Unknown Clear (Clear) 04/08/19 Unknown 5.0 (5.0-7.0) 04/08/19 Unknown Ur Specific [place] 1.011 (1.003-1.030) 04/08/19 Unknown <15 mg/dl mg/dL (Negative) 04/08/19 Unknown Neg mg/dL (Negative) 04/08/19 Unknown Neg mg/dL (Negative) 04/08/19 Unknown Neg (Negative) 04/08/19 Unknown Neg (Negative) 04/08/19 Unknown Neg (Negative) 04/08/19 Unknown < 2.0 mg/dL (<2.0) 04/08/19 Unknown Ur Leukocyte Esterase Tr (Negative) 04/08/19 Unknown 4.0 /HPF (0.0-6.0) 04/08/19 Unknown 2.0 /HPF (0.0-6.0) 04/08/19 Unknown Few /HPF 04/08/19 Unknown Active Medications - Current Medications Current Medications: Generic Name Dose Route Start Last Admin Trade Name Freq PRN Reason Stop Dose Admin Acetaminophen 650 mg 04/08/19 10:40 Tylenol PO Q4H PRN Pain MILD(1-3)/Fever >100.5/MAC Albuterol 2.5 mg 04/09/19 12:47 Proventil IH Q6HRT PRN Shortness Of Breath Calamine 1 applic 04/08/19 16:42 Calamine TP PRN PRN Allergic Reaction Diphenhydramine HCl 25 mg 04/08/19 11:00 04/10/19 06:22 Benadryl IV 25 mg Q6H JAIME Administration Enoxaparin Sodium 40 mg 04/09/19 10:00 04/09/19 10:22 Lovenox SUB-Q 40 mg QDAY JAIME Administration Famotidine 20 mg 04/08/19 11:00 04/09/19 21:30 Pepcid IV 20 mg BID JAIME Administration Fentanyl 50 mcg 04/08/19 08:53 Sublimaze IV Q10MIN PRN ANALGESIA Hydralazine HCl 10 mg 04/08/19 10:47 Apresoline IV Q4HR PRN BP >160/100 Hydrophilic Ointment 1 applic 04/08/19 10:04 Vaseline Lip Therapy TP Q2HR PRN Dry Lips Fentanyl Citrate 2,000 mcg in 100 mls @ 4.365 mls/hr 04/08/19 09:00 04/10/19 03:03 Fentanyl Drip Premix IV 4 mcg/kg/hr TITR JAIME 17.46 mls/hr Administration Protocol 1 MCG/KG/HR Propofol 1,000 mg in 100 mls @ 2.619 mls/hr 04/08/19 11:00 04/10/19 07:59 Diprivan 10 Mg/Ml IV 35 mcg/kg/min TITR JAIME 18 mls/hr Administration Protocol 5 MCG/KG/MIN Methylprednisolone Sodium Succinate 80 mg 04/08/19 14:00 04/10/19 06:23 Solu-Medrol IV 80 mg Q8HR JAIME Administration Morphine Sulfate 2 mg 04/08/19 10:40 Morphine IV Q4H PRN Pain, Moderate (4-6) Multi-Ingred Cream/Lotion/Oil/Oint 1 applic 04/08/19 10:04 Artificial Tears Ophth Oint OU Q4HR PRN Dry Eye(s) Ondansetron HCl 4 mg 04/08/19 10:40 04/09/19 09:40 Zofran IV 4 mg Q8H PRN Administration Nausea And Vomiting Sodium Chloride 10 ml 04/08/19 22:00 04/10/19 06:31 Sodium Chloride Flush Syringe 10 Ml IV 10 ml BID JAIME Administration Sodium Chloride 10 ml 04/08/19 10:40 Sodium Chloride Flush Syringe 10 Ml IV PRN PRN LINE FLUSH Nutrition/Malnutrition Assess - Dietary Evaluation Nutrition/Malnutrition Findings: Nutrition Notes Start: 04/09/19 16:13 Freq: Status: Active Protocol: Document 04/09/19 16:13 RM (Rec: 04/09/19 16:26 RM [id number]) Nutrition Notes Need for Assessment generated from: MD Order Initial or Follow up Assessment Current Diagnosis Hypertension,Respiratory Failure Other Pertinent Diagnosis Angioedema Current Diet No diet ordered Labs/Tests A1c 5.7 Pertinent Medications Solu-Medrol, Propofol @ 8 ml/ hr (211 kcal) Height 5 ft 6 in Weight 87.3 kg [place] Body Weight (kg) 64.54 BMI 31.0 Subjective/Other Information Consulted for evaluate nutritional intake. Pt on vent. Burn Absent Trauma Absent #1 Nutrition Diagnosis Inadequate oral intake Etiology on vent As Evidenced by Signs and Symptoms NPO status Is patient on ventilator? Yes Is Patient Ambulatory and/or Out of Bed No REE-([facility]-confined to bed) 2038.272 Kcal/Kg value to use for calculation 18 Approximate Energy Requirements Using 1571 kcal/Kg Calculation Used for Recommendations Kcal/kg Additional Notes Protein Needs: 129g (2g/kg IBW ) Fluid Needs: 1 ml/kcal Nutrition Intervention Change Diet Order: TF consult Nutrition Support: Vital 1.2 at 60 ml/hr. Water flush of 100 mls q 4 hrs . Kcal 1,728 Protein (gm) 108 Fluid (mL) 1,168 Goal #1 TF consult Anticipated Discharge Needs: Unable to determine at this time Follow-Up By: 04/11/19 Additional Comments Follow for TF consult
[2019-04-10] MEDS: LOVENOX SUB-Q SCH (09:25)
[2019-04-10] MEDS: PEPCID IV SCH ×2 (09:25→21:19)
[2019-04-10] MEDS ORDERED: VERSED IV PRN (12:23)
--- NOTE | 2019-04-10 14:36 | Progress Note ---
Assessment and Plan Acute respiratory failure, now on mechanical ventilation. Presumed angioedema. Obesity. Autism with behavioral disorders, intermittent agitation. Leukopenia at presentation. Respiratory acidosis at presentation. Hyperglycemia. Obesity. Hyperlipidemia (His mother states that he has significant sometimes violent behaviours and i fear agitation may be a rate limiting factor to safe extubation) - begin Seroquel 150 mg po bid to spare propofol amnd IV sedatives - versed 2 mg I.V. q2h prn - begin enteral nutrition - get dedicated CT of neck and address - get serum TSH level - continue daily SAT's and SBT assessment as tolerated - prn sedation target for RASS 0 to -1 - continue to wean supplemental oxygen to keep O2 sats > 90% - follow clinically off AB's for now - continue bronchodilators with pulmonary hygiene per RT - Lung protective strategies - VAP bundle addressed - Psych evaluation post extubation - continue accuchecks with glycemic control per SSI for target glucose of 140- 180 mg/dL - Maintenance of sleep -wake cycle - Mobility protocol for pressure ulcer prophylaxis - continue GI & VTE prophylaxis - Influenza and pneumonia vaccination per protocol - discharge planning ongoing concurrently .... care plan discussed at length with his mother in room .... re-evaluate in am & prn PROGNOSIS: GUARDED CONDITION: CRITICAL CODE STATUS: FULL CODE The high probability of a clinically significant, sudden or life-threatening deterioration of the [respiratory, neurology, renal] system(s) required my full and direct attention, intervention and personal management. The aggregate critical care time was [35] minutes without overlap. Time includes spent on; [x] Data Review and interpretation [x] Patient assessment and monitoring of vital signs [x] Documentation [x] Medication orders and management Subjective Date of service: 04/10/19 Principal diagnosis: Acute Hypoxemic Resp failure; Presumed angioedema; Obesity; Autism; Obesity Interval history: Patient is seen today for: Acute respiratory failure, now on mechanical ventilation; Presumed angioedema; Obesity; Autism with behavioral disorders, intermittent agitation; Leukopenia at presentation; Respiratory acidosis at presentation; Hyperglycemia; Obesity. Seen and examined at bedside; 24hour events reviewed; nursing and respiratory care staff consulted; no adverse overnight events reported to me; severe agitation during sedation vacation; mother visiting; no emesis or overt aspiration; NGT effluent has slowed down; Afebrile; no seizures Objective Vital Signs - 12hr 04/10/19 04/10/1919 02:40 02:42 02:50 Temperature 98.4 F Pulse Rate 103 H 102 H Pulse Rate [ From Monitor] Pulse Rate [ Radial] Respiratory 12 12 Rate Respiratory Rate [ Generalized] Blood Pressure 138/83 142/89 O2 Sat by Pulse 97 94 Oximetry 04/10/19 04/10/19 04/10/19 03:00 03:10 03:20 Temperature Pulse Rate 99 H 99 H 98 H Pulse Rate [ From Monitor] Pulse Rate [ Radial] Respiratory 12 12 12 Rate Respiratory Rate [ Generalized] Blood Pressure 134/78 134/78 132/79 O2 Sat by Pulse 95 98 98 Oximetry 04/10/19 04/10/19 04/10/19 03:30 03:40 03:50 Temperature Pulse Rate 97 H 97 H 96 H Pulse Rate [ From Monitor] Pulse Rate [ Radial] Respiratory 12 12 12 Rate Respiratory Rate [ Generalized] Blood Pressure 142/84 142/84 148/79 O2 Sat by Pulse 98 98 98 Oximetry 04/10/19 04/10/19 04/10/19 04:00 04:10 04:20 Temperature Pulse Rate 94 H 93 H 92 H Pulse Rate [ 84 From Monitor] Pulse Rate [ 84 Radial] Respiratory 12 12 12 Rate Respiratory Rate [ Generalized] Blood Pressure 133/79 132/79 133/80 O2 Sat by Pulse 99 99 99 Oximetry 04/10/19 04/10/19 04/10/19 04:30 04:40 04:50 Temperature Pulse Rate 92 H 90 88 Pulse Rate [ From Monitor] Pulse Rate [ Radial] Respiratory 12 12 12 Rate Respiratory Rate [ Generalized] Blood Pressure 135/77 133/79 136/80 O2 Sat by Pulse 99 99 99 Oximetry 04/10/19 04/10/19 04/10/19 05:00 05:07 05:10 Temperature Pulse Rate 89 88 88 Pulse Rate [ From Monitor] Pulse Rate [ Radial] Respiratory 12 13 Rate Respiratory Rate [ Generalized] Blood Pressure 133/79 133/79 133/79 O2 Sat by Pulse 100 100 99 Oximetry 04/10/19 04/10/19 04/10/19 05:20 05:30 05:40 Temperature Pulse Rate 89 88 88 Pulse Rate [ From Monitor] Pulse Rate [ Radial] Respiratory 12 12 12 Rate Respiratory Rate [ Generalized] Blood Pressure 132/79 132/79 129/77 O2 Sat by Pulse 99 97 96 Oximetry 04/10/19 04/10/19 04/10/19 05:50 06:00 06:10 Temperature Pulse Rate 88 89 87 Pulse Rate [ From Monitor] Pulse Rate [ Radial] Respiratory 12 12 12 Rate Respiratory Rate [ Generalized] Blood Pressure 134/76 131/77 131/77 O2 Sat by Pulse 96 96 97 Oximetry 04/10/19 04/10/19 04/10/19 06:20 06:30 06:40 Temperature Pulse Rate 86 84 86 Pulse Rate [ From Monitor] Pulse Rate [ Radial] Respiratory 12 20 32 H Rate Respiratory Rate [ Generalized] Blood Pressure 131/76 132/77 132/77 O2 Sat by Pulse 97 99 100 Oximetry 04/10/19 04/10/19 04/10/19 06:50 07:00 07:10 Temperature Pulse Rate 83 80 80 Pulse Rate [ From Monitor] Pulse Rate [ Radial] Respiratory 18 12 12 Rate Respiratory Rate [ Generalized] Blood Pressure 130/74 129/76 129/76 O2 Sat by Pulse 99 99 98 Oximetry 04/10/19 04/10/19 04/10/19 07:20 07:30 07:40 Temperature Pulse Rate 81 83 104 H Pulse Rate [ From Monitor] Pulse Rate [ Radial] Respiratory 12 11 L 15 Rate Respiratory Rate [ Generalized] Blood Pressure 128/74 137/77 137/77 O2 Sat by Pulse 98 98 100 Oximetry 04/10/19 04/10/19 04/10/19 07:50 08:00 08:10 Temperature 98.9 F Pulse Rate 87 85 83 Pulse Rate [ 80 From Monitor] Pulse Rate [ 80 Radial] Respiratory 12 12 12 Rate Respiratory Rate [ Generalized] Blood Pressure 143/81 132/78 132/78 O2 Sat by Pulse 98 99 98 Oximetry 04/10/19 04/10/19 04/10/19 08:20 08:30 08:40 Temperature Pulse Rate 83 80 81 Pulse Rate [ From Monitor] Pulse Rate [ Radial] Respiratory 12 12 12 Rate Respiratory Rate [ Generalized] Blood Pressure 128/77 130/77 132/78 O2 Sat by Pulse 100 100 99 Oximetry 04/10/19 04/10/19 04/10/19 08:50 09:00 09:10 Temperature Pulse Rate 80 80 88 Pulse Rate [ From Monitor] Pulse Rate [ Radial] Respiratory 12 12 13 Rate Respiratory Rate [ Generalized] Blood Pressure 132/77 126/78 130/77 O2 Sat by Pulse 99 99 95 Oximetry 04/10/19 04/10/19 04/10/19 09:15 09:20 09:30 Temperature Pulse Rate 93 H 79 79 Pulse Rate [ From Monitor] Pulse Rate [ Radial] Respiratory 12 12 Rate Respiratory Rate [ Generalized] Blood Pressure 137/84 137/84 126/74 O2 Sat by Pulse 97 98 98 Oximetry 04/10/19 04/10/19 04/10/19 09:40 09:50 10:00 Temperature Pulse Rate 78 79 80 Pulse Rate [ From Monitor] Pulse Rate [ Radial] Respiratory 12 12 12 Rate Respiratory 12 Rate [ Generalized] Blood Pressure 126/74 130/78 128/78 O2 Sat by Pulse 98 98 98 Oximetry 04/10/19 04/10/19 04/10/19 10:10 10:20 10:30 Temperature Pulse Rate 77 79 76 Pulse Rate [ From Monitor] Pulse Rate [ Radial] Respiratory 12 12 12 Rate Respiratory Rate [ Generalized] Blood Pressure 130/78 128/77 129/77 O2 Sat by Pulse 98 98 98 Oximetry 04/10/19 04/10/19 04/10/19 10:40 10:50 10:56 Temperature Pulse Rate 78 76 75 Pulse Rate [ From Monitor] Pulse Rate [ Radial] Respiratory 12 12 Rate Respiratory Rate [ Generalized] Blood Pressure 129/77 131/77 131/77 O2 Sat by Pulse 98 99 99 Oximetry 04/10/19 04/10/19 04/10/19 11:00 11:10 11:20 Temperature Pulse Rate 75 76 76 Pulse Rate [ From Monitor] Pulse Rate [ Radial] Respiratory 12 12 12 Rate Respiratory Rate [ Generalized] Blood Pressure 129/78 129/78 135/79 O2 Sat by Pulse 100 100 100 Oximetry 04/10/19 04/10/19 04/10/19 11:30 11:40 11:50 Temperature Pulse Rate 75 75 74 Pulse Rate [ From Monitor] Pulse Rate [ Radial] Respiratory 12 12 12 Rate Respiratory Rate [ Generalized] Blood Pressure 131/75 131/75 129/76 O2 Sat by Pulse 100 100 100 Oximetry 04/10/19 04/10/19 04/10/19 12:00 12:10 12:20 Temperature 98.4 F Pulse Rate 74 74 73 Pulse Rate [ 75 From Monitor] Pulse Rate [ 75 Radial] Respiratory 12 12 12 Rate Respiratory Rate [ Generalized] Blood Pressure 133/76 133/76 130/74 O2 Sat by Pulse 100 100 100 Oximetry 04/10/19 04/10/19 04/10/19 12:30 12:40 12:43 Temperature Pulse Rate 71 73 74 Pulse Rate [ From Monitor] Pulse Rate [ Radial] Respiratory 10 L 12 Rate Respiratory Rate [ Generalized] Blood Pressure 133/78 133/78 131/77 O2 Sat by Pulse 100 100 100 Oximetry 04/10/19 04/10/19 12:50 13:00 Temperature Pulse Rate 73 70 Pulse Rate [ From Monitor] Pulse Rate [ Radial] Respiratory 12 12 Rate Respiratory Rate [ Generalized] Blood Pressure 131/77 139/81 O2 Sat by Pulse 100 100 Oximetry Constitutional: appears uncomfortable, other (middle aged AAM with obvious neck swelling) Eyes: non-icteric ENT: oropharynx moist, other (ETT 24 cm Colin) Neck: supple, no lymphadenopathy, no JVD, other (likely enlarged thyroid gland with R>L neck swelling) Effort: mildly labored Ascultation: Bilateral: rhonchi Percussion: Bilateral: not dull Cardiovascular: regular rate and rhythm Gastrointestinal: normoactive bowel sounds, soft, non-tender, non-distended Integumentary: normal Extremities: no cyanosis, no edema, pulses normal, no ischemia or petechiae Neurologic: non-focal exam, pupils equal and round, CN II-XII normal, motor strength normal and Psychiatric: other (sedated) CBC and BMP: 04/09/19 04:54 04/09/19 04:54 ABG, PT/INR, D-dimer: ABG POC ABG pH 7.347 (7.35-7.45) L 04/10/19 11:04 POC ABG pCO2 54.0 (35-45) H 04/10/19 11:04 POC ABG pO2 107 (80-105) H 04/10/19 11:04 POC ABG HCO3 29.6 (22-26 mml/L) 04/10/19 11:04 POC ABG Total CO2 31 (23-27mmol/L) 04/10/19 11:04 POC ABG O2 Sat 98 04/10/19 11:04 PT/INR, D-dimer PT 13.8 Sec. (12.2-14.9) 04/08/19 10:24 INR 1.09 (0.87-1.13) 04/08/19 10:24 Abnormal lab findings: Abnormal Labs 04/08/19 04/08/19 04/08/19 10:24 10:24 11:32 WBC 4.3 L RBC 5.06 H MCV 79 L MCH 27 L RDW 15.3 H Lymph # 0.7 L Seg Neutrophils % 74.8 H POC ABG pH 7.281 L POC ABG pCO2 56.3 H POC ABG pO2 155 H BUN Glucose 127 H POC Glucose Albumin 3.7 L Cholesterol LDL Cholesterol Direct 04/08/19 04/08/19 04/09/19 15:59 18:44 04:26 WBC RBC MCV MCH RDW Lymph # Seg Neutrophils % POC ABG pH POC ABG pCO2 POC ABG pO2 116 H BUN Glucose POC Glucose 145 H 149 H Albumin Cholesterol LDL Cholesterol Direct 04/09/19 04/09/19 04/10/19 04:54 04:54 05:25 WBC RBC MCV 80 L MCH 27 L RDW 15.7 H Lymph # 0.8 L Seg Neutrophils % 77.9 H POC ABG pH 7.243 L POC ABG pCO2 69.5 H POC ABG pO2 124 H BUN 21 H Glucose 158 H POC Glucose Albumin Cholesterol 200 H LDL Cholesterol Direct 145 H 04/10/19 11:04 WBC RBC MCV MCH RDW Lymph # Seg Neutrophils % POC ABG pH 7.347 L POC ABG pCO2 54.0 H POC ABG pO2 107 H BUN Glucose POC Glucose Albumin Cholesterol LDL Cholesterol Direct Chest x-ray: image reviewed (no focal infiltrate) Allied health notes reviewed: nursing
[2019-04-10] MEDS ORDERED: SIMPLE SYRUP FEEDTUBE PRN ×2 (14:50)
[2019-04-10] MEDS ORDERED: SODIUM BICARBONATE FEEDTUBE PRN (14:50)
[2019-04-10] MEDS ORDERED: PANCREAZE DR 10,500 UNIT FEEDTUBE PRN (14:50)
--- NOTE | 2019-04-10 17:02 | Cat Scan Report ---
PROCEDURE: CT NECK W CON TECHNIQUE: Computerized axial tomography of the soft tissue neck was performed following the IV inje ction of iodinated nonionic contrast. CT DOSE LENGTH PRODUCT: 471.4 mGycm HISTORY: swelling COMPARISONS: X-ray chest also performed today . FINDINGS: Visualization of fine detail in portions of the neck is somewhat limited by streak artifact created b y the patient's shoulders and large body habitus. The right lobe of the thyroid is markedly enlarged and heterogeneous in appearance. The right lobe of the thyroid extends inferiorly into the neck deep to the right sternocleidomastoid muscle to the lev el of the angle of the mandible. The isthmus and left lobe of the thyroid are moderately enlarged and heterogeneous in appearance. The left lobe of the thyroid extends inferiorly to the level of the thoracic inlet. There is displacement of the trachea to the left by the enlarged thyroid gland. An endotracheal tube is in place with the tip below the level of the clavicles and above the level of the marah. An esophagogastric tube is partially visualized. There is no other evidence of a cervical mass. There is no definite evidence of cervical adenopathy. There is normal enhancement of the major cervical vascular structures. The orbital contents, paranasal and mastoid sinuses are unremarkable. The bony structures are notable for evidence of congenital cervical canal stenosis. IMPRESSION: 1. Enlarged heterogeneous thyroid gland with the right lobe larger than the left and extending superi shoshana to the level of the angle of the mandible. This results in mass effect on the trachea with displ acement to the left. 2. Endotracheal tube with tip in satisfactory position. 3. Congenital cervical canal stenosis. This document is electronically signed by Nathalie Mariee MD., April 10 2019 05:00:26 PM ET
[2019-04-11] MEDS: APRESOLINE IV PRN ×4 (00:30→21:24)
[2019-04-11] MEDS: SODIUM CHLORIDE FLUSH SYRINGE 10 ML IV SCH ×3 (00:39→21:30)
[2019-04-11] MEDS: DIPRIVAN 10 MG/ML 1,000 MG/100 ML BOTTLE IV SCH ×2 (00:52→06:55)
--- NOTE | 2019-04-11 01:08 | Consultation ---
CONSULTING PHYSICIAN: Dr. Orellana. REASON FOR CONSULTATION: Acute respiratory failure, on mechanical ventilatory support, critical care management. CHIEF COMPLAINT AND HISTORY OF PRESENT ILLNESS: The patient is a 44-year-old -[place] male with past medical history significant amongst other things according to his mother for a diagnosis of autism who was apparently exposed to Poison jenny on the week of presentation. He developed a rash and swelling by Tuesday, which was 2 days before presentation, on the Tuesday, had some facial puffiness and some swelling on the neck and apparent hives. According to the ER physician, his mom noticed that the swelling of his neck was worse. She brought him into the Emergency Room on Tuesday. It seemed to be progressive. The patient was able to phonate. He was not drooling. He did have significant neck swelling, especially on the right. He felt it was getting worse as well. There also was history of intermittent agitation. After evaluation in the Emergency Room, a decision was made that it was better that his airway to be protected for possible angioedema. He was intubated with rapid sequence intubation in the ER and transferred to the intensive care unit. When I stopped by to see him, he was resting in bed. He was sedated significantly. He had been agitated during sedation by patient. Do not have any history of vomiting or overt aspiration. His mom states this has not happened before, but that the swelling around his neck has been there for a few weeks, apparently. With regards to the patient's tobacco use/abuse history, he is described as a never smoker. Really as much of the history of this presentation as I have. PAST MEDICAL HISTORY: 1. He is autistic. 2. History of obesity. PAST SURGICAL HISTORY: Mom had denied in the ER. MEDICATIONS: He was on at the time I stopped by to see him were reviewed. Pertinent medications included the following: Tylenol 650 mg p.o. q. 4 hours p.r.n. fever greater than 100.5 or mild pain, all p.o. meds are via the feeding tube, Calamine lotion apply topically to the allergic reaction site, Benadryl 25 mg IV scheduled q. 6 hours, Lovenox 40 mg subcutaneous daily, Pepcid 20 mg IV b.i.d., fentanyl drip had been ordered. I believe he was given at 1 mcg/kg per hour, hydralazine 10 mg IV q.4 hours p.r.n. systolic blood pressure greater than 160, diastolic greater than 100, Diprivan was going at 30 mcg per kilogram per minute, Solu-Medrol 80 mg IV q. 8 hours, morphine sulfate 2 mg IV q. 4 hours p.r.n., Zofran 4 mg IV q. 8 hours p.r.n. nausea and vomiting. ALLERGIES: No known drug allergies. DIET: Obese gentleman. Mom denies acute weight loss or gain in the preceding few weeks to months. FAMILY AND SOCIAL HISTORY: Lives in the community. No current alcohol, tobacco, or illicit drug use or abuse. Family history, otherwise noncontributory. REVIEW OF SYSTEMS: Unobtainable secondary to patient's medical and mental condition. Since he has been here, no gross hematochezia or melena, no gross hematuria, no hematemesis, no bloody tracheal secretions, no witnessed seizures. Review of systems otherwise unobtainable. PHYSICAL EXAMINATION: VITAL SIGNS: At presentation in the Emergency Room, he was afebrile, temperature 97.6 degrees Fahrenheit with a pulse of 98, respiratory rate of 20, blood pressure was 214/120, O2 sats were 99%, inspired oxygen concentration at that time was not recorded. When I stopped by to see him, he was on the assist control mode of ventilation. The assist control PRVC mode set rate of 20, tidal volumes I believe was 500 with a PEEP of 6, and 35% FiO2 at that time. GENERAL: He is a middle-aged -[place] male. He has obvious swelling to the right greater than left side of his neck with a large neck circumference on the mechanical ventilatory settled, was sedated without significant patient ventilator dyssynchrony. HEAD, EYES, EARS, NOSE AND THROAT: He is anicteric. No conjunctival erythema. Oropharynx was moist. Endotracheal tube was in place, taped around 23-24 cm at the lips. He had swelling to the right side greater than left side of his neck. It was soft. Did not appear to be tender. No gross jugular venous distention. Grossly, no palpable lymph nodes in the supraclavicular or submandibular lymph node chains. LUNGS: Auscultation of both lung le, scant bilateral rhonchi. Good bilateral air movement, otherwise no wheezing. HEART: Heart sounds 1 and 2 are heard at the time of my evaluation, regular rate and rhythm without overt rubs or murmurs. ABDOMEN: Soft, full, bowel sounds are positive, nontender. No palpable hepatosplenomegaly. EXTREMITIES: Without overt digital clubbing, cyanosis, no pedal edema. Pedal pulses were strong bilaterally and palpable. NEUROLOGIC: Pupils are equal, round, about 3 mm, sluggishly reactive to light. Extraocular muscle movements could not be adequately assessed. He had spontaneous movements to all extremities. SKIN: Warm, no cellulitis, no decubitus ulcer. He has a rash to the face and around the neck. Mild swelling of the lips. No other wheals or lesions were seen on the rest of his body. LABORATORY DATA: From my review are as follows: Admission white cell count 4300, hemoglobin 13.5, hematocrit 39.7 and platelet count 322. No band forms. INR was 1.09. ABG showed a pH of 7.28, pCO2 of 56.3, pO2 of 155 that was on 50% FiO2 at presentation. ABG was 7.39 at the time of my evaluation. Serum sodium was 137, potassium 3.6, chloride 102, bicarbonate 25, BUN 11, creatinine 0.8, glucose 127. Liver function test is within normal limits. Troponin within is normal limits. Albumin slightly diminished at 3.7. Cholesterol was elevated at 200. Urinalysis was unremarkable. It did show trace leukocyte esterase, no bacteria, 4 white cells per high power field. Urine cultures, tracheal aspirate no growth to date. Radiographic studies have been reviewed. A chest x-ray was done initially at presentation. Mild elevation of the right hemidiaphragm, otherwise a normal chest x-ray. Post-intubation chest x-ray show endotracheal tube tip is riding a little bit high at mid level of the clavicular heads, possible faint right lower lobe infiltrates. No gross pneumothorax, no gross bony fracture that I can see. ASSESSMENT: 1. Acute respiratory failure, now on mechanical ventilation. 2. Presumed angioedema. 3. Obesity. 4. Autism with behavioral disorders, intermittent agitation. 5. Leukopenia at presentation. 6. Respiratory acidosis at presentation. 7. Hyperglycemia. 8. Obesity. 9. Hyperlipidemia. PLAN: We will try and work this sedation down. I will see if we can get to a safe point to begin PSV trials. I should mention that I did do a cuff leak test and he has significant air movement around the deflated cuff. I doubt we are truly dealing with angioedema or perhaps the medications are improving the swelling. Nevertheless, I do agree that intubation was in the right intervention acutely. Ventilator-associated pneumonia bundle has been instituted including aspiration precautions. Bronchodilators will be continued with pulmonary hygiene per the respiratory therapist. Oxygen will be weaned to keep sats greater than or equal to about 90%. He is appropriately on GI prophylaxis as well as DVT prophylaxis. We will follow him empirically off antibiotics. We will continue systemic steroids for now. I will get a CRP level and lactic acid level to aid clinical decision making. Enteral nutrition will be the feeding modality of choice. We will continue topical therapies to his skin with calamine lotion. Flu and pneumonia vaccination will be addressed per protocol. Thank you very much for the consult. We will follow along. We will make further recommendations as picture progresses/becomes clearer. He is critically ill on life-sustaining interventions including mechanical ventilatory support at high risk including the risk of . I should mention once more stable, a CT scan of the neck will be ordered. At this time, I spent about 35-40 minutes of critical care time without overlap and excluding any procedural time that may be necessary. JOB# [id number] ANNA/RODGER MACE
[2019-04-11] MEDS: fentaNYL DRIP Premix 2,000 MCG/100 ML BAG IV SCH (02:07)
--- NOTE | 2019-04-11 02:57 | XRay Report ---
PROCEDURE: XR CHEST 1V AP TECHNIQUE: Chest radiograph single view. HISTORY: follow up respiratory failure COMPARISONS: None . FINDINGS: Heart: Normal. Mediastinum/Vessels: Normal. Lungs/Pleural space: Normal. Bony thorax: No acute osseous abnormality. Life support devices: The endotracheal tube ends 4 cm above the marah. A nasogastric tube ends below the hemidiaphragms. IMPRESSION: There is no evidence of an acute infiltrate or effusion. The endotracheal tube and nasog astric tube are properly positioned. This document is electronically signed by Shruthi Rushing DO., April 11 2019 02:55:17 AM ET
[2019-04-11] MEDS: BENADRYL IV SCH (05:23)
--- NOTE | 2019-04-11 08:23 | Progress Note ---
Assessment and Plan Assessment and plan: Patient is a 44-year-old man who presented with worsening angioedema and airway compromise, intubated for airway protection. Patient was exposed to poison jenny in the face. Patient self extubated himself even in restraints on 04/11/19 around 0745 am * 03/10/19 CT neck with contrast IMPRESSION: 1. Enlarged heterogeneous thyroid gland with the right lobe larger than the left and extending superiorly to the level of the angle of the mandible. This results in mass effect on the trachea wit h displacement to the left. 2. Endotracheal tube with tip in satisfactory position. 3. Congenital cervical canal stenosis. Thyroid mass, Right lobe with low TSH; check free t4, total t3 (send out lab), free t3 Acute respiratory failure on mechanical ventilator < 96 hours s/p self extubation on 04/11/19 at ~0745 am: supportive care, bipap on standby Anaphylaxis/angioedema: Steroids, H1 patel, H2 patel, improving Malignant hypertension with hypertensive emergency: optimize bp meds Autism: cont supportive care Urinary Retention: re-inserted cuenca DVT prophylaxis with Lovenox CCT 34 minutes History Interval history: Patient was seen and examined. Follow-up on current diagnosis Resp failure. Patient self extubated himself, urinary retentions >500 PVR and cuenca re- inserted. Imaging, nursing note, chart, labs and old chart reviewed. Discussed with nurse. Mother at bedside. Hospitalist Physical - Physical exam Narrative exam: Gen: ill appearing intubated and sedated HEENT: NCAT, EOMI, PERRL, OP ett Neck: supple, swollen bilateral neck CVS/Heart: RRR, normal S1S2, pulses present bilaterally Chest/Lungs: CTA B, Symmetrical chest expansion, good air entry bilaterally GI/Abdomen: soft, NTND, good bowel sounds, no guarding or rebound /Bladder: no suprapubic tenderness, no CVA or paraspinal tenderness Extermity/Skin: neck swelling, obvious rash face MSK: intubated and sedated Neuro: intubated and sedated Psych: intubated and sedated - Constitutional Vitals: Temp Pulse Resp BP Pulse Ox 98.2 F 121 H 12 188/117 96 04/11/19 04:00 04/11/19 07:51 04/11/19 07:51 04/11/19 07:51 04/11/19 07:56 Results - Labs CBC & Chem 7: 04/09/19 04:54 04/09/19 04:54 Labs: Laboratory Last Values WBC 4.6 K/mm3 (4.5-11.0) 04/09/19 04:54 RBC 4.77 M/mm3 (3.65-5.03) 04/09/19 04:54 Hgb 12.8 gm/dl (11.8-15.2) 04/09/19 04:54 Hct 38.2 % (35.5-45.6) 04/09/19 04:54 MCV 80 fl (84-94) L 04/09/19 04:54 MCH 27 pg (28-32) L 04/09/19 04:54 MCHC 33 % (32-34) 04/09/19 04:54 RDW 15.7 % (13.2-15.2) H 04/09/19 04:54 Plt Count 279 K/mm3 (140-440) 04/09/19 04:54 Lymph % (Auto) 17.1 % (13.4-35.0) 04/09/19 04:54 Dare % (Auto) 4.9 % (0.0-7.3) 04/09/19 04:54 Eos % (Auto) 0.0 % (0.0-4.3) 04/09/19 04:54 Baso % (Auto) 0.1 % (0.0-1.8) 04/09/19 04:54 Lymph # 0.8 K/mm3 (1.2-5.4) L 04/09/19 04:54 Dare # 0.2 K/mm3 (0.0-0.8) 04/09/19 04:54 Eos # 0.0 K/mm3 (0.0-0.4) 04/09/19 04:54 Baso # 0.0 K/mm3 (0.0-0.1) 04/09/19 04:54 Seg Neutrophils % 77.9 % (40.0-70.0) H 04/09/19 04:54 Seg Neutrophils # 3.6 K/mm3 (1.8-7.7) 04/09/19 04:54 PT 13.8 Sec. (12.2-14.9) 04/08/19 10:24 INR 1.09 (0.87-1.13) 04/08/19 10:24 APTT 30.7 Sec. (24.2-36.6) 04/08/19 10:24 POC ABG pH 7.376 (7.35-7.45) 04/11/19 04:53 POC ABG pCO2 54.2 (35-45) H 04/11/19 04:53 POC ABG pO2 82 (80-105) 04/11/19 04:53 POC ABG HCO3 31.8 (22-26 mml/L) 04/11/19 04:53 POC ABG Total CO2 33 (23-27mmol/L) 04/11/19 04:53 POC ABG O2 Sat 95 04/11/19 04:53 POC ABG Base Excess 7 ((-2) - (+3)mmol/L) 04/11/19 04:53 30 % 04/11/19 04:53 Sodium 138 mmol/L (137-145) 04/09/19 04:54 Potassium 4.3 mmol/L (3.6-5.0) 04/09/19 04:54 Chloride 100.3 mmol/L (98-107) 04/09/19 04:54 Carbon Dioxide 24 mmol/L (22-30) 04/09/19 04:54 18 mmol/L 04/09/19 04:54 BUN 21 mg/dL (9-20) H 04/09/19 04:54 1.3 mg/dL (0.8-1.5) D 04/09/19 04:54 Estimated GFR > 60 ml/min 04/09/19 04:54 16 % 04/09/19 04:54 Glucose 158 mg/dL (75-100) H 04/09/19 04:54 POC Glucose 131 (70-105) H 04/10/19 23:36 5.7 % (4-6) 04/09/19 04:54 Calcium 8.7 mg/dL (8.4-10.2) 04/09/19 04:54 Magnesium 2.00 mg/dL (1.7-2.3) 04/08/19 10:24 0.70 mg/dL (0.1-1.2) 04/08/19 10:24 < 0.2 mg/dL (0-0.2) 04/08/19 10:24 0.5 mg/dL 04/08/19 10:24 AST 11 units/L (5-40) 04/08/19 10:24 ALT 13 units/L (7-56) 04/08/19 10:24 75 units/L (35-129) 04/08/19 10:24 76 units/L (55-170) 04/08/19 10:24 CK-MB (CK-2) 1.2 ng/mL (0.0-4.0) 04/08/19 10:24 CK-MB (CK-2) Rel Index 1.5 (0-4) 04/08/19 10:24 < 0.010 ng/mL (0.00-0.029) 04/08/19 10:24 1.00 mg/dL (0.00-1.30) 04/10/19 13:50 NT-Pro-B Natriuret Pep 52.03 pg/mL (0-450) 04/08/19 10:24 6.8 g/dL (6.3-8.2) 04/08/19 10:24 3.7 g/dL (3.9-5) L 04/08/19 10:24 1.2 % 04/08/19 10:24 Triglycerides 306 mg/dL (2-149) H 04/11/19 04:58 Cholesterol 200 mg/dL (50-199) H 04/09/19 04:54 145 mg/dL (50-130) H 04/09/19 04:54 43 mg/dL (40-59) 04/09/19 04:54 4.65 % 04/09/19 04:54 TSH 0.119 mlU/mL (0.270-4.200) L 04/10/19 13:44 Yellow (Yellow) 04/08/19 Unknown Clear (Clear) 04/08/19 Unknown 5.0 (5.0-7.0) 04/08/19 Unknown Ur Specific [place] 1.011 (1.003-1.030) 04/08/19 Unknown <15 mg/dl mg/dL (Negative) 04/08/19 Unknown Neg mg/dL (Negative) 04/08/19 Unknown Neg mg/dL (Negative) 04/08/19 Unknown Neg (Negative) 04/08/19 Unknown Neg (Negative) 04/08/19 Unknown Neg (Negative) 04/08/19 Unknown < 2.0 mg/dL (<2.0) 04/08/19 Unknown Ur Leukocyte Esterase Tr (Negative) 04/08/19 Unknown 4.0 /HPF (0.0-6.0) 04/08/19 Unknown 2.0 /HPF (0.0-6.0) 04/08/19 Unknown Few /HPF 04/08/19 Unknown Active Medications - Current Medications Current Medications: Generic Name Dose Route Start Last Admin Trade Name Freq PRN Reason Stop Dose Admin Acetaminophen 650 mg 04/08/19 10:40 Tylenol PO Q4H PRN Pain MILD(1-3)/Fever >100.5/MAC Albuterol 2.5 mg 04/09/19 12:47 Proventil IH Q6HRT PRN Shortness Of Breath Lipase/Protease/Amylase 1 each 04/10/19 14:[address] 10,500 Unit FEEDTUBE PRN PRN For Clogged Feeding Tube Calamine 1 applic 04/08/19 16:42 04/10/19 09:39 Calamine TP 1 applic PRN PRN Administration Allergic Reaction Diphenhydramine HCl 25 mg 04/08/19 11:00 04/11/19 05:23 Benadryl IV 25 mg Q6H JAIME Administration Enoxaparin Sodium 40 mg 04/09/19 10:00 04/10/19 09:25 Lovenox SUB-Q 40 mg QDAY JAIME Administration Famotidine 20 mg 04/08/19 11:00 04/10/19 21:19 Pepcid IV 20 mg BID JAIME Administration Fentanyl 50 mcg 04/08/19 08:53 Sublimaze IV Q10MIN PRN ANALGESIA Hydralazine HCl 10 mg 04/08/19 10:47 04/11/19 00:30 Apresoline IV 10 mg Q4HR PRN Administration BP >160/100 Hydrophilic Ointment 1 applic 04/08/19 10:04 Vaseline Lip Therapy TP Q2HR PRN Dry Lips Fentanyl Citrate 2,000 mcg in 100 mls @ 4.365 mls/hr 04/08/19 09:00 04/11/19 04:05 Fentanyl Drip Premix IV 2 mcg/kg/hr TITR JAIME 8.73 mls/hr Titration Protocol 1 MCG/KG/HR Propofol 1,000 mg in 100 mls @ 2.619 mls/hr 04/08/19 11:00 04/11/19 06:55 Diprivan 10 Mg/Ml IV 35 mcg/kg/min TITR JAIME 18 mls/hr Administration Protocol 5 MCG/KG/MIN Methylprednisolone Sodium Succinate 40 mg 04/10/19 22:00 04/10/19 21:19 Solu-Medrol IV 40 mg Q12HR JAIME Administration Midazolam HCl 2 mg 04/10/19 12:23 Versed IV 04/12/19 23:59 Q2H PRN AGITATION Morphine Sulfate 2 mg 04/08/19 10:40 Morphine IV Q4H PRN Pain, Moderate (4-6) Multi-Ingred Cream/Lotion/Oil/Oint 1 applic 04/08/19 10:04 Artificial Tears Ophth Oint OU Q4HR PRN Dry Eye(s) Ondansetron HCl 4 mg 04/08/19 10:40 04/09/19 09:40 Zofran IV 4 mg Q8H PRN Administration Nausea And Vomiting Quetiapine Fumarate 150 mg 04/10/19 13:00 04/10/19 21:19 Seroquel PO 150 mg BID JAIME Administration Simple Syrup 15 ml 04/10/19 14:50 Simple Syrup FEEDTUBE PRN PRN Hypoglycemia Simple Syrup 30 ml 04/10/19 14:50 Simple Syrup FEEDTUBE PRN PRN Hypoglycemia Sodium Bicarbonate 325 mg 04/10/19 14:50 Sodium Bicarbonate FEEDTUBE PRN PRN For Clogged Feeding Tube Sodium Chloride 10 ml 04/08/19 22:00 04/11/19 00:39 Sodium Chloride Flush Syringe 10 Ml IV 10 ml BID JAIME Administration Sodium Chloride 10 ml 04/08/19 10:40 Sodium Chloride Flush Syringe 10 Ml IV PRN PRN LINE FLUSH Nutrition/Malnutrition Assess - Dietary Evaluation Nutrition/Malnutrition Findings: Nutrition Notes Start: 04/09/19 16:13 Freq: Status: Active Protocol: Document 04/10/19 14:48 RM (Rec: 04/10/19 14:50 RM [email or web address]) Nutrition Notes Initial or Follow up Brief Note Height 5 ft 6 in Weight 87.3 kg [place] Body Weight (kg) 64.54 BMI 31.0 Subjective/Other Information Consulted for TF recommendation. Recommend Vital 1.2 at 60 ml/ hr. Is patient on ventilator? Yes Is Patient Ambulatory and/or Out of Bed No [facility] 8.272 Kcal/Kg value to use for calculation 18 Approximate Energy Requirements Using 1571 kcal/Kg Calculation Used for Recommendations Kcal/kg Additional Notes Protein Needs: 129g (2g/kg IBW ) Fluid Needs: 1 ml/kcal Nutrition Intervention Nutrition Support: Vital 1.2 at 60 ml/hr. Water flush of 100 mls q 4 hrs . Kcal 1,728 Protein (gm) 108 Fluid (mL) 1,168 Follow-Up By: 04/12/19 Additional Comments Follow for new TF
[2019-04-11] MEDS: ZOFRAN IV PRN ×2 (09:26→18:09)
[2019-04-11] MEDS: PEPCID IV SCH ×2 (10:25→21:15)
[2019-04-11] MEDS: SOLU-Medrol IV SCH (10:25)
[2019-04-11] MEDS: LOVENOX SUB-Q SCH (10:30)
[2019-04-11] MEDS ORDERED: NORMODYNE IV PRN (11:32)
[2019-04-11] MEDS ORDERED: HALDOL IV PRN (12:30)
--- NOTE | 2019-04-11 13:45 | Progress Note ---
Assessment and Plan Acute respiratory failure, now on mechanical ventilation. Presumed angioedema. Obesity. Autism with behavioral disorders, intermittent agitation. Leukopenia at presentation. Respiratory acidosis at presentation. Hyperglycemia. Obesity. Hyperlipidemia - continue Seroquel 150 mg po bid - prn haldol - aspiration precautions - ST evaluation - CT of neck reveals heterogenous goiter; TSH is low; will get T4,T3 + US thyroid - continue to wean supplemental oxygen to keep O2 sats > 90% - prn bronchodilators with pulmonary hygiene per RT - Psych consult placed - continue accuchecks with glycemic control per SSI for target glucose of 140- 180 mg/dL - Maintenance of sleep -wake cycle - Mobility protocol for pressure ulcer prophylaxis - continue GI & VTE prophylaxis - Influenza and pneumonia vaccination per protocol - discharge planning ongoing concurrently .... re-evaluate in am & prn PROGNOSIS: GUARDED CONDITION: CRITICAL CODE STATUS: FULL CODE The high probability of a clinically significant, sudden or life-threatening deterioration of the [respiratory, neurology, renal] system(s) required my full and direct attention, intervention and personal management. The aggregate critical care time was [32] minutes without overlap. Time includes spent on; [x] Data Review and interpretation [x] Patient assessment and monitoring of vital signs [x] Documentation [x] Medication orders and management Subjective Date of service: 04/10/19 Principal diagnosis: Acute Hypoxemic Resp failure; Presumed angioedema; Obesity; Autism; Obesity Interval history: Subjective Date of service: 04/11/19 Principal diagnosis: Acute Hypoxemic Resp failure; Presumed angioedema; Obesity; Autism; Obesity Interval history: Patient is seen today for: Acute respiratory failure, now on mechanical ventilation; Presumed angioedema; Obesity; Autism with behavioral disorders, intermittent agitation; Leukopenia at presentation; Respiratory acidosis at presentation; Hyperglycemia; Obesity. Seen and examined at bedside; 24hour events reviewed; nursing and respiratory care staff consulted; no adverse overnight events reported to me; self extubated earlier; still requiring restraints; + emesis & dry heaves; m,other in room; non verbal really; remains on supplemental oxygen Objective Vital Signs - 12hr 04/11/19 04/11/19 04/11/19 01:46 01:50 01:56 Temperature Pulse Rate 79 77 77 Pulse Rate [ From Monitor] Respiratory 12 12 8 L Rate Blood Pressure 153/89 153/89 153/89 O2 Sat by Pulse 98 98 99 Oximetry 04/11/19 04/11/19 04/11/19 02:00 02:06 02:10 Temperature Pulse Rate 71 80 78 Pulse Rate [ From Monitor] Respiratory 14 12 12 Rate Blood Pressure 133/80 133/80 133/80 O2 Sat by Pulse 100 98 99 Oximetry 04/11/19 04/11/19 04/11/19 02:16 02:20 02:30 Temperature Pulse Rate 77 76 75 Pulse Rate [ From Monitor] Respiratory 12 12 12 Rate Blood Pressure 133/80 133/80 142/88 O2 Sat by Pulse 98 98 97 Oximetry 04/11/19 04/11/19 04/11/19 03:00 03:30 04:00 Temperature 98.2 F Pulse Rate 72 81 79 Pulse Rate [ 79 From Monitor] Respiratory 12 12 12 Rate Blood Pressure 133/80 138/80 135/82 O2 Sat by Pulse 98 98 99 Oximetry 04/11/19 04/11/19 04/11/19 04:11 04:30 05:00 Temperature Pulse Rate 83 85 74 Pulse Rate [ From Monitor] Respiratory 12 11 L Rate Blood Pressure 150/91 152/92 O2 Sat by Pulse 95 94 94 Oximetry 04/11/19 04/11/19 04/11/19 05:30 06:00 06:30 Temperature Pulse Rate 77 76 75 Pulse Rate [ From Monitor] Respiratory 12 12 12 Rate Blood Pressure 146/92 149/95 143/91 O2 Sat by Pulse 99 99 99 Oximetry 04/11/19 04/11/19 04/11/19 07:00 07:30 07:51 Temperature Pulse Rate 85 107 H 121 H Pulse Rate [ From Monitor] Respiratory 14 13 12 Rate Blood Pressure 143/91 143/91 188/117 O2 Sat by Pulse 99 98 97 Oximetry 04/11/19 04/11/19 04/11/19 07:56 08:00 08:30 Temperature Pulse Rate 130 H 102 H Pulse Rate [ From Monitor] Respiratory 13 16 Rate Blood Pressure 188/117 188/117 O2 Sat by Pulse 96 97 98 Oximetry 04/11/19 04/11/19 04/11/19 09:00 09:15 09:30 Temperature Pulse Rate 105 H 120 H Pulse Rate [ From Monitor] Respiratory 10 L 14 Rate Blood Pressure 194/118 185/96 183/102 O2 Sat by Pulse 100 100 Oximetry 04/11/19 04/11/19 04/11/19 10:00 10:30 11:00 Temperature Pulse Rate 117 H 120 H 113 H Pulse Rate [ From Monitor] Respiratory 10 L 14 11 L Rate Blood Pressure 192/111 192/111 192/111 O2 Sat by Pulse 97 99 Oximetry 04/11/19 04/11/19 04/11/19 11:30 12:00 12:30 Temperature 98.1 F Pulse Rate 111 H 114 H 112 H Pulse Rate [ From Monitor] Respiratory 11 L 16 12 Rate Blood Pressure 192/111 192/111 176/105 O2 Sat by Pulse 97 96 94 Oximetry Constitutional: appears uncomfortable, other (middle aged AAM with obvious neck swelling) Eyes: non-icteric ENT: oropharynx moist, other (extubated) Neck: supple, no lymphadenopathy, no JVD, other (likely enlarged thyroid gland with R>L neck swelling) Effort: mildly labored Ascultation: Bilateral: rhonchi Percussion: Bilateral: not dull Cardiovascular: regular rate and rhythm Gastrointestinal: normoactive bowel sounds, soft, non-tender, non-distended Integumentary: normal Extremities: no cyanosis, no edema, pulses normal, no ischemia or petechiae Neurologic: non-focal exam, pupils equal and round, CN II-XII normal, motor str ength normal and Psychiatric: anxious CBC and BMP: 04/09/19 04:54 04/09/19 04:54 ABG, PT/INR, D-dimer: ABG POC ABG pH 7.376 (7.35-7.45) 04/11/19 04:53 POC ABG pCO2 54.2 (35-45) H 04/11/19 04:53 POC ABG pO2 82 (80-105) 04/11/19 04:53 POC ABG HCO3 31.8 (22-26 mml/L) 04/11/19 04:53 POC ABG Total CO2 33 (23-27mmol/L) 04/11/19 04:53 POC ABG O2 Sat 95 04/11/19 04:53 PT/INR, D-dimer PT 13.8 Sec. (12.2-14.9) 04/08/19 10:24 INR 1.09 (0.87-1.13) 04/08/19 10:24 Abnormal lab findings: Abnormal Labs 04/08/19 04/08/19 04/08/19 10:24 10:24 11:32 WBC 4.3 L RBC 5.06 H MCV 79 L MCH 27 L RDW 15.3 H Lymph # 0.7 L Seg Neutrophils % 74.8 H POC ABG pH 7.281 L POC ABG pCO2 56.3 H POC ABG pO2 155 H BUN Glucose 127 H POC Glucose Albumin 3.7 L Triglycerides Cholesterol LDL Cholesterol Direct TSH 04/08/19 04/08/19 04/09/19 15:59 18:44 04:26 WBC RBC MCV MCH RDW Lymph # Seg Neutrophils % POC ABG pH POC ABG pCO2 POC ABG pO2 116 H BUN Glucose POC Glucose 145 H 149 H Albumin Triglycerides Cholesterol LDL Cholesterol Direct TSH 04/09/19 04/09/19 04/10/19 04:54 04:54 05:25 WBC RBC MCV 80 L MCH 27 L RDW 15.7 H Lymph # 0.8 L Seg Neutrophils % 77.9 H POC ABG pH 7.243 L POC ABG pCO2 69.5 H POC ABG pO2 124 H BUN 21 H Glucose 158 H POC Glucose Albumin Triglycerides Cholesterol 200 H LDL Cholesterol Direct 145 H TSH 04/10/19 04/10/19 04/10/19 11:04 13:44 23:36 WBC RBC MCV MCH RDW Lymph # Seg Neutrophils % POC ABG pH 7.347 L POC ABG pCO2 54.0 H POC ABG pO2 107 H BUN Glucose POC Glucose 131 H Albumin Triglycerides Cholesterol LDL Cholesterol Direct TSH 0.119 L 04/11/19 04/11/19 04:53 04:58 WBC RBC MCV MCH RDW Lymph # Seg Neutrophils % POC ABG pH POC ABG pCO2 54.2 H POC ABG pO2 BUN Glucose POC Glucose Albumin Triglycerides 306 H Cholesterol LDL Cholesterol Direct TSH Allied health notes reviewed: nursing
--- NOTE | 2019-04-12 03:06 | XRay Report ---
PROCEDURE: XR CHEST 1V AP TECHNIQUE: Chest radiograph single view. HISTORY: follow up respiratory failure COMPARISONS: 04/11/2019 . FINDINGS: Heart: Normal. Mediastinum/Vessels: Normal. Lungs/Pleural space: There are no acute infiltrates or effusions.. Bony thorax: No acute osseous abnormality. Life support devices: There has been interval extubation and removal of the NG tube.. IMPRESSION: No acute cardiopulmonary abnormality. This document is electronically signed by Ronny Doyle MD., April 12 2019 03:04:32 AM ET
--- NOTE | 2019-04-12 09:08 | Progress Note ---
Assessment and Plan Acute respiratory failure, s/p mechanical ventilation. Goiter Obesity. Autism with behavioral disorders, intermittent agitation. Leukopenia at presentation. Respiratory acidosis at presentation, resolved Hyperglycemia. Obesity. Hyperlipidemia -stop morning Seroquel - aspiration precautions - RECONCILIATION CLERK to evalaute for dysphagia prior to initiating oral feeding - CT of neck reveals heterogenous goiter; TSH is low; will get T4,T3 - continue to wean supplemental oxygen to keep O2 sats > 90% - prn bronchodilators with pulmonary hygiene per RT - continue accuchecks with glycemic control per SSI for target glucose of 140- 180 mg/dL - Maintenance of sleep -wake cycle - PT/OT to evalaute and treat - continue VTE prophylaxis - Influenza and pneumonia vaccination per protocol OK to transfer out of the ICU to telemetry PROGNOSIS: GUARDED CONDITION: FAIR CODE STATUS: FULL CODE Subjective Date of service: 04/12/19 Principal diagnosis: Acute Hypoxemic Resp failure; Presumed angioedema; Obesity; Autism; Obesity Interval history: Patient is seen today for: Acute respiratory failure, s/p mechanical v entilation; Presumed angioedema; Obesity; Autism with behavioral disorders, intermittent agitation; Leukopenia at presentation; Respiratory acidosis at presentation; Hyperglycemia; Obesity. Seen and examined at bedside; 24hour events reviewed; nursing and respiratory care staff consulted; no adverse overnight events reported to me; self extubated , doing well today, not agitated, no fevers or chills, no nausea or vomiting, no diarrhea, no chest pain, no shortness of breath. Objective Vital Signs - 12hr 04/11/19 04/11/19 04/11/19 21:24 21:31 22:01 Temperature Pulse Rate 94 H 102 H 112 H Pulse Rate [ From Monitor] Respiratory 12 23 Rate Blood Pressure 172/107 155/111 151/106 O2 Sat by Pulse 97 96 Oximetry 04/11/19 04/11/19 04/11/19 22:31 23:01 23:23 Temperature Pulse Rate 94 H 99 H 79 Pulse Rate [ From Monitor] Respiratory 16 23 18 Rate Blood Pressure 162/96 153/98 153/98 O2 Sat by Pulse 97 97 98 Oximetry 04/11/19 04/11/19 04/12/19 23:31 23:40 00:00 Temperature 99.6 F Pulse Rate 84 90 88 Pulse Rate [ 88 From Monitor] Respiratory 15 12 18 Rate Blood Pressure 156/88 156/88 O2 Sat by Pulse 98 98 98 Oximetry 04/12/19 04/12/19 04/12/19 00:01 00:31 01:01 Temperature Pulse Rate 88 100 H 90 Pulse Rate [ From Monitor] Respiratory 18 15 14 Rate Blood Pressure 155/93 155/93 150/102 O2 Sat by Pulse 98 97 98 Oximetry 04/12/19 04/12/19 04/12/19 01:31 02:00 02:31 Temperature Pulse Rate 91 H 85 88 Pulse Rate [ From Monitor] Respiratory 16 12 20 Rate Blood Pressure 150/102 145/82 135/87 O2 Sat by Pulse 99 99 98 Oximetry 04/12/19 04/12/19 04/12/19 03:01 03:31 03:36 Temperature 99.5 F Pulse Rate 90 79 Pulse Rate [ From Monitor] Respiratory 13 16 Rate Blood Pressure 135/87 142/81 O2 Sat by Pulse 97 98 Oximetry 04/12/19 04/12/19 04/12/19 04:00 04:01 04:31 Temperature Pulse Rate 104 H 104 H 92 H Pulse Rate [ 104 H From Monitor] Respiratory 17 17 26 H Rate Blood Pressure 142/81 142/81 O2 Sat by Pulse 99 99 98 Oximetry 04/12/19 04/12/19 04/12/19 05:01 05:31 06:01 Temperature Pulse Rate 94 H 85 81 Pulse Rate [ From Monitor] Respiratory 15 14 10 L Rate Blood Pressure 146/84 146/84 142/88 O2 Sat by Pulse 98 99 99 Oximetry 04/12/19 04/12/19 04/12/19 06:31 07:01 07:31 Temperature Pulse Rate 83 85 84 Pulse Rate [ From Monitor] Respiratory 14 13 15 Rate Blood Pressure 142/88 142/88 149/95 O2 Sat by Pulse 100 99 99 Oximetry 04/12/19 04/12/19 04/12/19 08:00 08:01 08:31 Temperature 98.8 F Pulse Rate 83 97 H Pulse Rate [ 94 H From Monitor] Respiratory 16 14 13 Rate Blood Pressure 163/88 163/88 O2 Sat by Pulse 97 95 98 Oximetry Constitutional: appears uncomfortable, other (middle aged AAM with obvious neck swelling) Eyes: non-icteric ENT: oropharynx moist, other (extubated) Neck: supple, no lymphadenopathy, no JVD, other (likely enlarged thyroid gland with R>L neck swelling) Effort: mildly labored Ascultation: Bilateral: rhonchi Percussion: Bilateral: not dull Cardiovascular: regular rate and rhythm Gastrointestinal: normoactive bowel sounds, soft, non-tender, non-distended Integumentary: normal Extremities: no cyanosis, no edema, pulses normal, no ischemia or petechiae Neurologic: non-focal exam, pupils equal and round, CN II-XII normal, motor strength normal and Psychiatric: anxious CBC and BMP: 04/09/19 04:54 04/09/19 04:54 ABG, PT/INR, D-dimer: ABG POC ABG pH 7.376 (7.35-7.45) 04/11/19 04:53 POC ABG pCO2 54.2 (35-45) H 04/11/19 04:53 POC ABG pO2 82 (80-105) 04/11/19 04:53 POC ABG HCO3 31.8 (22-26 mml/L) 04/11/19 04:53 POC ABG Total CO2 33 (23-27mmol/L) 04/11/19 04:53 POC ABG O2 Sat 95 04/11/19 04:53 PT/INR, D-dimer PT 13.8 Sec. (12.2-14.9) 04/08/19 10:24 INR 1.09 (0.87-1.13) 04/08/19 10:24 Abnormal lab findings: Abnormal Labs 04/08/19 04/08/19 04/08/19 10:24 10:24 11:32 WBC 4.3 L RBC 5.06 H MCV 79 L MCH 27 L RDW 15.3 H Lymph # 0.7 L Seg Neutrophils % 74.8 H POC ABG pH 7.281 L POC ABG pCO2 56.3 H POC ABG pO2 155 H BUN Glucose 127 H POC Glucose Albumin 3.7 L Triglycerides Cholesterol LDL Cholesterol Direct TSH 04/08/19 04/08/19 04/09/19 15:59 18:44 04:26 WBC RBC MCV MCH RDW Lymph # Seg Neutrophils % POC ABG pH POC ABG pCO2 POC ABG pO2 116 H BUN Glucose POC Glucose 145 H 149 H Albumin Triglycerides Cholesterol LDL Cholesterol Direct TSH 04/09/19 04/09/19 04/10/19 04:54 04:54 05:25 WBC RBC MCV 80 L MCH 27 L RDW 15.7 H Lymph # 0.8 L Seg Neutrophils % 77.9 H POC ABG pH 7.243 L POC ABG pCO2 69.5 H POC ABG pO2 124 H BUN 21 H Glucose 158 H POC Glucose Albumin Triglycerides Cholesterol 200 H LDL Cholesterol Direct 145 H TSH 04/10/19 04/10/19 04/10/19 11:04 13:44 23:36 WBC RBC MCV MCH RDW Lymph # Seg Neutrophils % POC ABG pH 7.347 L POC ABG pCO2 54.0 H POC ABG pO2 107 H BUN Glucose POC Glucose 131 H Albumin Triglycerides Cholesterol LDL Cholesterol Direct TSH 0.119 L 04/11/19 04/11/19 04:53 04:58 WBC RBC MCV MCH RDW Lymph # Seg Neutrophils % POC ABG pH POC ABG pCO2 54.2 H POC ABG pO2 BUN Glucose POC Glucose Albumin Triglycerides 306 H Cholesterol LDL Cholesterol Direct TSH Chest x-ray: image reviewed Allied health notes reviewed: nursing
[2019-04-12] MEDS: PEPCID PO SCH ×2 (09:27→21:34)
[2019-04-12] MEDS: LOVENOX SUB-Q SCH (09:28)
[2019-04-12] MEDS: SODIUM CHLORIDE FLUSH SYRINGE 10 ML IV SCH ×2 (09:28→21:35)
--- NOTE | 2019-04-12 13:08 | Consultation ---
History of Present Illness - Reason for Consult Consult date: 04/12/19 Reason for consult: Initial Psychiatric Evaluation - History of Present Psychiatric Illness Patient is a 44 year male that presents to the emergency room after being exposed to poison jenny. Psychiatry was consulted for autism with behavioral disturbances. Today the patient is lethargic. Limited cognition noted. Patient blankly stares at provider but does not answer questions. Current Psychiatric Medications: Unable to Assess. Past Psychiatric History: Unable to Assess. Past Medication Trials: Unable to Assess. History of Alcohol/Drug Abuse: Unable to Assess. History of Trauma/Abuse: Unable to Assess. Social History: Unable to Assess. Family History of Psychiatric Illness/Substance Abuse: Unable to Assess. Medications and Allergies Allergies Allergy/AdvReac Type Severity Reaction Status Date / Time No Known Allergies Allergy Unverified 04/08/19 07:38 Home Medications Medication Instructions Recorded Confirmed Last Taken Type No Known Home Medications [No 04/09/19 04/09/19 Unknown History Reported Home Medications] Active Meds: Active Medications Acetaminophen (Tylenol) 650 mg PO Q4H PRN PRN Reason: Pain MILD(1-3)/Fever >100.5/MAC Albuterol (Proventil) 2.5 mg IH Q6HRT PRN PRN Reason: Shortness Of Breath Calamine (Calamine) 1 applic TP PRN PRN PRN Reason: Allergic Reaction Last Admin: 04/10/19 09:39 Dose: 1 applic Documented by: Enoxaparin Sodium (Lovenox) 40 mg SUB-Q QDAY [facility] Last Admin: 04/12/19 09:28 Dose: 40 mg Documented by: Famotidine (Pepcid) 20 mg PO BID [facility] Last Admin: 04/12/19 09:27 Dose: 20 mg Documented by: Haloperidol Lactate (Haldol) 5 mg IV Q6H PRN PRN Reason: Agitation Hydrophilic Ointment (Vaseline Lip Therapy) 1 applic TP Q2HR PRN PRN Reason: Dry Lips Labetalol HCl (Normodyne) 10 mg IV Q4H PRN PRN Reason: SBP > 170 Morphine Sulfate (Morphine) 2 mg IV Q4H PRN PRN Reason: Pain, Moderate (4-6) Multi-Ingred Cream/Lotion/Oil/Oint (Artificial Tears Ophth Oint) 1 applic OU Q4HR PRN PRN Reason: Dry Eye(s) Ondansetron HCl (Zofran) 4 mg IV Q8H PRN PRN Reason: Nausea And Vomiting Last Admin: 04/11/19 18:09 Dose: 4 mg Documented by: Sodium Chloride (Sodium Chloride Flush Syringe 10 Ml) 10 ml IV BID JAIME Last Admin: 04/12/19 09:28 Dose: 10 ml Documented by: Sodium Chloride (Sodium Chloride Flush Syringe 10 Ml) 10 ml IV PRN PRN PRN Reason: LINE FLUSH Mental Status Exam - Vital signs Last Vital Signs Temp 98.8 F 04/12/19 08:00 Pulse 97 H 04/12/19 08:31 Resp 13 04/12/19 08:31 BP 163/88 04/12/19 08:31 Pulse Ox 98 04/12/19 08:31 - Exam Narrative exam: Mental Status Exam: Appearance: Calm- hospital gown Behavior: Unable to Assess Speech: Slow, limited/minimal speech Mood: Unable to Assess Affect: Unable to Assess Thought Process: Impoverished Thought Content: Unable to Assess. Insight: Unable to Assess Judgment: Unable to Assess. Results Result Diagrams: 04/09/19 04:54 04/09/19 04:54 All other labs normal. Assessment and Plan Assessment and plan: Impression: Provider unable to assess. Patient appears calm but lethargic. Speech is minimal. Blankly stares at provider. Recommendation/Plan: 1. Will attempt to reassess in 24 hours. 2. Attempt to gain collateral to determine proper disposition. Disposition: Will reassess in 24 hours. Will staff with Dr. Noam Novoa.
--- NOTE | 2019-04-12 16:37 | Progress Note ---
Assessment and Plan Assessment and plan: Patient is a 44-year-old man who presented with worsening angioedema and airway compromise, intubated for airway protection. Patient was exposed to poison jenny in the face. Patient self extubated himself even in restraints on 04/11/19 around 0745 am * 03/10/19 CT neck with contrast IMPRESSION: 1. Enlarged heterogeneous thyroid gland with the right lobe larger than the left and extending superiorly to the level of the angle of the mandible. This results in mass effect on the trachea wit h displacement to the left. 2. Endotracheal tube with tip in satisfactory position. 3. Congenital cervical canal stenosis. Thyroid mass, Right lobe with low TSH normal free t4, thyroglobin antibodies and total t3/total t3 are send out labs and they are pending. Acute respiratory failure on mechanical ventilator < 96 hours s/p self extubation on 04/11/19 at ~0745 am: supportive care, bipap on standby Anaphylaxis/angioedema: Steroids, H1 patel, H2 patel, improving Malignant hypertension with hypertensive emergency: optimize bp meds Autism: cont supportive care Urinary Retention: re-inserted cuenca DVT prophylaxis with Lovenox transfer to tele per [facility] History Interval history: Patient was seen and examined. Follow-up on current diagnosis Resp failure. Patient self extubated himself, urinary retentions >500 PVR and cuenca re- inserted. Imaging, nursing note, chart, labs and old chart reviewed. Discussed with nurse. Mother at bedside. Hospitalist Physical - Physical exam Narrative exam: Gen: ill appearing intubated and sedated HEENT: NCAT, EOMI, PERRL, OP ett Neck: supple, swollen bilateral neck CVS/Heart: RRR, normal S1S2, pulses present bilaterally Chest/Lungs: CTA B, Symmetrical chest expansion, good air entry bilaterally GI/Abdomen: soft, NTND, good bowel sounds, no guarding or rebound /Bladder: no suprapubic tenderness, no CVA or paraspinal tenderness Extermity/Skin: neck swelling, obvious rash face MSK: intubated and sedated Neuro: intubated and sedated Psych: intubated and sedated - Constitutional Vitals: Temp Pulse Resp BP Pulse Ox 99.6 F 83 11 L 146/96 92 04/12/19 14:20 04/12/19 14:01 04/12/19 14:01 04/12/19 14:01 04/12/19 14:01 Results - Labs CBC & Chem 7: 04/09/19 04:54 04/09/19 04:54 Labs: Laboratory Last Values WBC 4.6 K/mm3 (4.5-11.0) 04/09/19 04:54 RBC 4.77 M/mm3 (3.65-5.03) 04/09/19 04:54 Hgb 12.8 gm/dl (11.8-15.2) 04/09/19 04:54 Hct 38.2 % (35.5-45.6) 04/09/19 04:54 MCV 80 fl (84-94) L 04/09/19 04:54 MCH 27 pg (28-32) L 04/09/19 04:54 MCHC 33 % (32-34) 04/09/19 04:54 RDW 15.7 % (13.2-15.2) H 04/09/19 04:54 Plt Count 279 K/mm3 (140-440) 04/09/19 04:54 Lymph % (Auto) 17.1 % (13.4-35.0) 04/09/19 04:54 Dickens % (Auto) 4.9 % (0.0-7.3) 04/09/19 04:54 Eos % (Auto) 0.0 % (0.0-4.3) 04/09/19 04:54 Baso % (Auto) 0.1 % (0.0-1.8) 04/09/19 04:54 Lymph # 0.8 K/mm3 (1.2-5.4) L 04/09/19 04:54 Dickens # 0.2 K/mm3 (0.0-0.8) 04/09/19 04:54 Eos # 0.0 K/mm3 (0.0-0.4) 04/09/19 04:54 Baso # 0.0 K/mm3 (0.0-0.1) 04/09/19 04:54 Seg Neutrophils % 77.9 % (40.0-70.0) H 04/09/19 04:54 Seg Neutrophils # 3.6 K/mm3 (1.8-7.7) 04/09/19 04:54 PT 13.8 Sec. (12.2-14.9) 04/08/19 10:24 INR 1.09 (0.87-1.13) 04/08/19 10:24 APTT 30.7 Sec. (24.2-36.6) 04/08/19 10:24 POC ABG pH 7.376 (7.35-7.45) 04/11/19 04:53 POC ABG pCO2 54.2 (35-45) H 04/11/19 04:53 POC ABG pO2 82 (80-105) 04/11/19 04:53 POC ABG HCO3 31.8 (22-26 mml/L) 04/11/19 04:53 POC ABG Total CO2 33 (23-27mmol/L) 04/11/19 04:53 POC ABG O2 Sat 95 04/11/19 04:53 POC ABG Base Excess 7 ((-2) - (+3)mmol/L) 04/11/19 04:53 30 % 04/11/19 04:53 Sodium 138 mmol/L (137-145) 04/09/19 04:54 Potassium 4.3 mmol/L (3.6-5.0) 04/09/19 04:54 Chloride 100.3 mmol/L (98-107) 04/09/19 04:54 Carbon Dioxide 24 mmol/L (22-30) 04/09/19 04:54 18 mmol/L 04/09/19 04:54 BUN 21 mg/dL (9-20) H 04/09/19 04:54 1.3 mg/dL (0.8-1.5) D 04/09/19 04:54 Estimated GFR > 60 ml/min 04/09/19 04:54 16 % 04/09/19 04:54 Glucose 158 mg/dL (75-100) H 04/09/19 04:54 POC Glucose 131 (70-105) H 04/10/19 23:36 5.7 % (4-6) 04/09/19 04:54 Calcium 8.7 mg/dL (8.4-10.2) 04/09/19 04:54 Magnesium 2.00 mg/dL (1.7-2.3) 04/08/19 10:24 0.70 mg/dL (0.1-1.2) 04/08/19 10:24 < 0.2 mg/dL (0-0.2) 04/08/19 10:24 0.5 mg/dL 04/08/19 10:24 AST 11 units/L (5-40) 04/08/19 10:24 ALT 13 units/L (7-56) 04/08/19 10:24 75 units/L (35-129) 04/08/19 10:24 76 units/L (55-170) 04/08/19 10:24 CK-MB (CK-2) 1.2 ng/mL (0.0-4.0) 04/08/19 10:24 CK-MB (CK-2) Rel Index 1.5 (0-4) 04/08/19 10:24 < 0.010 ng/mL (0.00-0.029) 04/08/19 10:24 1.00 mg/dL (0.00-1.30) 04/10/19 13:50 NT-Pro-B Natriuret Pep 52.03 pg/mL (0-450) 04/08/19 10:24 6.8 g/dL (6.3-8.2) 04/08/19 10:24 3.7 g/dL (3.9-5) L 04/08/19 10:24 1.2 % 04/08/19 10:24 Triglycerides 306 mg/dL (2-149) H 04/11/19 04:58 Cholesterol 200 mg/dL (50-199) H 04/09/19 04:54 145 mg/dL (50-130) H 04/09/19 04:54 43 mg/dL (40-59) 04/09/19 04:54 4.65 % 04/09/19 04:54 TSH 0.119 mlU/mL (0.270-4.200) L 04/10/19 13:44 Free T4 0.93 ng/dL (0.76-1.46) 04/11/19 15:49 Yellow (Yellow) 04/08/19 Unknown Clear (Clear) 04/08/19 Unknown 5.0 (5.0-7.0) 04/08/19 Unknown Ur Specific [place] 1.011 (1.003-1.030) 04/08/19 Unknown <15 mg/dl mg/dL (Negative) 04/08/19 Unknown Neg mg/dL (Negative) 04/08/19 Unknown Neg mg/dL (Negative) 04/08/19 Unknown Neg (Negative) 04/08/19 Unknown Neg (Negative) 04/08/19 Unknown Neg (Negative) 04/08/19 Unknown < 2.0 mg/dL (<2.0) 04/08/19 Unknown Ur Leukocyte Esterase Tr (Negative) 04/08/19 Unknown 4.0 /HPF (0.0-6.0) 04/08/19 Unknown 2.0 /HPF (0.0-6.0) 04/08/19 Unknown Few /HPF 04/08/19 Unknown Active Medications - Current Medications Current Medications: Generic Name Dose Route Start Last Admin Trade Name Freq PRN Reason Stop Dose Admin Acetaminophen 650 mg 04/08/19 10:40 Tylenol PO Q4H PRN Pain MILD(1-3)/Fever >100.5/MAC Albuterol 2.5 mg 04/09/19 12:47 Proventil IH Q6HRT PRN Shortness Of Breath Calamine 1 applic 04/08/19 16:42 04/10/19 09:39 Calamine TP 1 applic PRN PRN Administration Allergic Reaction Enoxaparin Sodium 40 mg 04/09/19 10:00 04/12/19 09:28 Lovenox SUB-Q 40 mg QDAY JAIME Administration Famotidine 20 mg 04/12/19 10:00 04/12/19 09:27 Pepcid PO 20 mg BID JAIME Administration Haloperidol Lactate 5 mg 04/11/19 12:30 Haldol IV Q6H PRN Agitation Hydrophilic Ointment 1 applic 04/08/19 10:04 Vaseline Lip Therapy TP Q2HR PRN Dry Lips Labetalol HCl 10 mg 04/11/19 11:32 04/12/19 13:30 Normodyne IV 10 mg Q4H PRN Administration SBP > 170 Morphine Sulfate 2 mg 04/08/19 10:40 Morphine IV Q4H PRN Pain, Moderate (4-6) Multi-Ingred Cream/Lotion/Oil/Oint 1 applic 04/08/19 10:04 Artificial Tears Ophth Oint OU Q4HR PRN Dry Eye(s) Ondansetron HCl 4 mg 04/08/19 10:40 04/11/19 18:09 Zofran IV 4 mg Q8H PRN Administration Nausea And Vomiting Sodium Chloride 10 ml 04/08/19 22:00 04/12/19 09:28 Sodium Chloride Flush Syringe 10 Ml IV 10 ml BID JAIME Administration Sodium Chloride 10 ml 04/08/19 10:40 Sodium Chloride Flush Syringe 10 Ml IV PRN PRN LINE FLUSH Nutrition/Malnutrition Assess - Dietary Evaluation Nutrition/Malnutrition Findings: Nutrition Notes Start: 04/09/19 16:13 Freq: Status: Active Protocol: Document 04/11/19 16:39 RM (Rec: 04/11/19 16:45 RM [id number]) Nutrition Notes Initial or Follow up Reassessment Current Diagnosis Hypertension,Respiratory Failure Other Pertinent Diagnosis Angioedema Current Diet Vital 1.2 at 60 ml/hr Labs/Tests Reviewed Pertinent Medications Reviewed Height 5 ft 6 in Weight 87.3 kg [place] Body Weight (kg) 64.54 BMI 31.0 Subjective/Other Information Per pt nurse pt pulled out tube and self extubated today. During rounds MD ordered that pt be started on oral diet. Burn Absent Trauma Absent #1 Nutrition Diagnosis Inadequate oral intake Diagnosis Progress(for reassessment Continues documentation) Is patient on ventilator? No Is Patient Ambulatory and/or Out of Bed No REE-([facility]-confined to bed) 8.272 Kcal/Kg value to use for calculation 18 Approximate Energy Requirements Using 1571 kcal/Kg Calculation Used for Recommendations Kcal/kg Additional Notes Protein Needs: 129g (2g/kg IBW ) Fluid Needs: 1 ml/kcal Nutrition Intervention Change Diet Order: Cardiac, Mech soft Nutrition Support: D/C Goal #1 PO tolerance Goal #2 Meet at least 80% of calorie and protein needs via PO intakes Anticipated Discharge Needs: Unable to determine at this time Follow-Up By: 04/13/19 Additional Comments Follow for PO tolerance, PO intakes
[2019-04-12] MEDS: LOPRESSOR PO SCH ×2 (17:35→21:34)
[2019-04-13] MEDS: PEPCID PO SCH ×2 (10:06→22:18)
[2019-04-13] MEDS: LOVENOX SUB-Q SCH (10:06)
[2019-04-13] MEDS: LOPRESSOR PO SCH ×2 (10:06→22:17)
[2019-04-13] MEDS: SODIUM CHLORIDE FLUSH SYRINGE 10 ML IV SCH (10:07)
--- NOTE | 2019-04-13 10:35 | Progress Note ---
Assessment and Plan Acute respiratory failure, s/p mechanical ventilation. Goiter Obesity. Autism with behavioral disorders, intermittent agitation. Leukopenia at presentation. Respiratory acidosis at presentation, resolved Hyperglycemia. Obesity. Hyperlipidemia - aspiration precautions - CT of neck reveals heterogenous goiter - continue to wean supplemental oxygen to keep O2 sats > 90% - prn bronchodilators with pulmonary hygiene per RT - continue accuchecks with glycemic control per SSI for target glucose of 140- 180 mg/dL - Maintenance of sleep -wake cycle - PT/OT to evalaute and treat - continue VTE prophylaxis - Influenza and pneumonia vaccination per protocol -Supportive care Outpatietn follow up to address goitre Discharge planning PROGNOSIS: FAIR CONDITION: FAIR CODE STATUS: FULL CODE Subjective Date of service: 04/13/19 Principal diagnosis: Acute Hypoxemic Resp failure; Presumed angioedema; Obesity; Autism; Obesity Interval history: Patient is seen today for: Acute respiratory failure, s/p mechanical ventilation; Presumed angioedema; Obesity; Autism with behavioral disorders, intermittent agitation; Leukopenia at presentation; Respiratory acidosis at presentation; Hyperglycemia; Obesity. Seen and examined at bedside; 24hour events reviewed; vitals, labs, medications, chart reviewed; nursing and respiratory care staff consulted; no adverse overnight events reported to me; No fevers or chills, no chest pain, no shortness of breath, eating Objective Vital Signs - 12hr 04/13/19 04/13/19 04/13/19 00:00 00:24 04:00 Temperature 97.3 F L Pulse Rate 85 87 80 Respiratory 17 Rate Blood Pressure 131/85 O2 Sat by Pulse 92 Oximetry 04/13/19 04/13/19 04:28 07:40 Temperature 98.7 F 98.6 F Pulse Rate 81 78 Respiratory 17 20 Rate Blood Pressure 124/77 133/87 O2 Sat by Pulse 96 94 Oximetry Constitutional: appears uncomfortable, other (middle aged AAM with obvious neck swelling) Eyes: non-icteric ENT: oropharynx moist Neck: supple, no lymphadenopathy, no JVD, other (likely enlarged thyroid gland with R>L neck swelling) Effort: normal Ascultation: Bilateral: rhonchi Percussion: Bilateral: not dull Cardiovascular: regular rate and rhythm, other (S1,S2, no murmurs, gallops or rubs) Gastrointestinal: normoactive bowel sounds, soft, non-tender, non-distended Integumentary: normal Extremities: no cyanosis, no edema, pulses normal, no ischemia or petechiae Neurologic: non-focal exam, pupils equal and round, CN II-XII normal, motor strength normal and Psychiatric: mood appropriate, affect normal CBC and BMP: 04/09/19 04:54 04/09/19 04:54 ABG, PT/INR, D-dimer: ABG POC ABG pH 7.376 (7.35-7.45) 04/11/19 04:53 POC ABG pCO2 54.2 (35-45) H 04/11/19 04:53 POC ABG pO2 82 (80-105) 04/11/19 04:53 POC ABG HCO3 31.8 (22-26 mml/L) 04/11/19 04:53 POC ABG Total CO2 33 (23-27mmol/L) 04/11/19 04:53 POC ABG O2 Sat 95 04/11/19 04:53 PT/INR, D-dimer PT 13.8 Sec. (12.2-14.9) 04/08/19 10:24 INR 1.09 (0.87-1.13) 04/08/19 10:24 Abnormal lab findings: Abnormal Labs 04/08/19 04/08/19 04/08/19 10:24 10:24 11:32 WBC 4.3 L RBC 5.06 H MCV 79 L MCH 27 L RDW 15.3 H Lymph # 0.7 L Seg Neutrophils % 74.8 H POC ABG pH 7.281 L POC ABG pCO2 56.3 H POC ABG pO2 155 H BUN Glucose 127 H POC Glucose Albumin 3.7 L Triglycerides Cholesterol LDL Cholesterol Direct TSH 04/08/19 04/08/19 04/09/19 15:59 18:44 04:26 WBC RBC MCV MCH RDW Lymph # Seg Neutrophils % POC ABG pH POC ABG pCO2 POC ABG pO2 116 H BUN Glucose POC Glucose 145 H 149 H Albumin Triglycerides Cholesterol LDL Cholesterol Direct TSH 04/09/19 04/09/19 04/10/19 04:54 04:54 05:25 WBC RBC MCV 80 L MCH 27 L RDW 15.7 H Lymph # 0.8 L Seg Neutrophils % 77.9 H POC ABG pH 7.243 L POC ABG pCO2 69.5 H POC ABG pO2 124 H BUN 21 H Glucose 158 H POC Glucose Albumin Triglycerides Cholesterol 200 H LDL Cholesterol Direct 145 H TSH 04/10/19 04/10/19 04/10/19 11:04 13:44 23:36 WBC RBC MCV MCH RDW Lymph # Seg Neutrophils % POC ABG pH 7.347 L POC ABG pCO2 54.0 H POC ABG pO2 107 H BUN Glucose POC Glucose 131 H Albumin Triglycerides Cholesterol LDL Cholesterol Direct TSH 0.119 L 04/11/19 04/11/19 04:53 04:58 WBC RBC MCV MCH RDW Lymph # Seg Neutrophils % POC ABG pH POC ABG pCO2 54.2 H POC ABG pO2 BUN Glucose POC Glucose Albumin Triglycerides 306 H Cholesterol LDL Cholesterol Direct TSH Additional Studies: 03/10/19 CT neck with contrast IMPRESSION: 1. Enlarged heterogeneous thyroid gland with the right lobe larger than the left and extending superiorly to the level of the angle of the mandible. This results in mass effect on the trachea wit h displacement to the left. 2. Endotracheal tube with tip in satisfactory position. 3. Congenital cervical canal stenosis. Allied health notes reviewed: nursing
--- NOTE | 2019-04-13 17:15 | Progress Note ---
Assessment and Plan Assessment and plan: Patient is a 44-year-old man who presented with worsening angioedema and airway compromise, intubated for airway protection. Patient was exposed to poison jenny in the face. Patient self extubated himself even in restraints on 04/11/19 around 0745 am * 03/10/19 CT neck with contrast IMPRESSION: 1. Enlarged heterogeneous thyroid gland with the right lobe larger than the left and extending superiorly to the level of the angle of the mandible. This results in mass effect on the trachea wit h displacement to the left. 2. Endotracheal tube with tip in satisfactory position. 3. Congenital cervical canal stenosis. Thyroid mass, Right lobe with low TSH normal free t4, thyroglobin antibodies and total t3/total t3 are send out labs and they are pending. Acute respiratory failure on mechanical ventilator < 96 hours s/p self extubation on 04/11/19 at ~0745 am: supportive care, bipap on standby Anaphylaxis/angioedema: Steroids, H1 patel, H2 patel, improving Malignant hypertension with hypertensive emergency: optimize bp meds Autism: cont supportive care Urinary Retention: re-inserted cuenca DVT prophylaxis with Lovenox History Interval history: Patient was seen and examined. Follow-up on current diagnosis Resp failure. Patient self extubated himself, urinary retentions >500 PVR and cuenca re- inserted. Imaging, nursing note, chart, labs and old chart reviewed. Discussed with nurse. Mother at bedside. Hospitalist Physical - Physical exam Narrative exam: Gen: ill appearing intubated and sedated HEENT: NCAT, EOMI, PERRL, OP ett Neck: supple, swollen bilateral neck CVS/Heart: RRR, normal S1S2, pulses present bilaterally Chest/Lungs: CTA B, Symmetrical chest expansion, good air entry bilaterally GI/Abdomen: soft, NTND, good bowel sounds, no guarding or rebound /Bladder: no suprapubic tenderness, no CVA or paraspinal tenderness Extermity/Skin: neck swelling, obvious rash face MSK: intubated and sedated Neuro: intubated and sedated Psych: intubated and sedated - Constitutional Vitals: Temp Pulse Resp BP Pulse Ox 98.0 F 83 20 144/92 96 04/13/19 15:35 04/13/19 15:35 04/13/19 15:35 04/13/19 15:35 04/13/19 15:35 Results - Labs CBC & Chem 7: 04/09/19 04:54 04/09/19 04:54 Labs: Laboratory Last Values WBC 4.6 K/mm3 (4.5-11.0) 04/09/19 04:54 RBC 4.77 M/mm3 (3.65-5.03) 04/09/19 04:54 Hgb 12.8 gm/dl (11.8-15.2) 04/09/19 04:54 Hct 38.2 % (35.5-45.6) 04/09/19 04:54 MCV 80 fl (84-94) L 04/09/19 04:54 MCH 27 pg (28-32) L 04/09/19 04:54 MCHC 33 % (32-34) 04/09/19 04:54 RDW 15.7 % (13.2-15.2) H 04/09/19 04:54 Plt Count 279 K/mm3 (140-440) 04/09/19 04:54 Lymph % (Auto) 17.1 % (13.4-35.0) 04/09/19 04:54 [place] % (Auto) 4.9 % (0.0-7.3) 04/09/19 04:54 Eos % (Auto) 0.0 % (0.0-4.3) 04/09/19 04:54 Baso % (Auto) 0.1 % (0.0-1.8) 04/09/19 04:54 Lymph # 0.8 K/mm3 (1.2-5.4) L 04/09/19 04:54 [place] # 0.2 K/mm3 (0.0-0.8) 04/09/19 04:54 Eos # 0.0 K/mm3 (0.0-0.4) 04/09/19 04:54 Baso # 0.0 K/mm3 (0.0-0.1) 04/09/19 04:54 Seg Neutrophils % 77.9 % (40.0-70.0) H 04/09/19 04:54 Seg Neutrophils # 3.6 K/mm3 (1.8-7.7) 04/09/19 04:54 PT 13.8 Sec. (12.2-14.9) 04/08/19 10:24 INR 1.09 (0.87-1.13) 04/08/19 10:24 APTT 30.7 Sec. (24.2-36.6) 04/08/19 10:24 POC ABG pH 7.376 (7.35-7.45) 04/11/19 04:53 POC ABG pCO2 54.2 (35-45) H 04/11/19 04:53 POC ABG pO2 82 (80-105) 04/11/19 04:53 POC ABG HCO3 31.8 (22-26 mml/L) 04/11/19 04:53 POC ABG Total CO2 33 (23-27mmol/L) 04/11/19 04:53 POC ABG O2 Sat 95 04/11/19 04:53 POC ABG Base Excess 7 ((-2) - (+3)mmol/L) 04/11/19 04:53 30 % 04/11/19 04:53 Sodium 138 mmol/L (137-145) 04/09/19 04:54 Potassium 4.3 mmol/L (3.6-5.0) 04/09/19 04:54 Chloride 100.3 mmol/L (98-107) 04/09/19 04:54 Carbon Dioxide 24 mmol/L (22-30) 04/09/19 04:54 18 mmol/L 04/09/19 04:54 BUN 21 mg/dL (9-20) H 04/09/19 04:54 1.3 mg/dL (0.8-1.5) D 04/09/19 04:54 Estimated GFR > 60 ml/min 04/09/19 04:54 16 % 04/09/19 04:54 Glucose 158 mg/dL (75-100) H 04/09/19 04:54 POC Glucose 131 (70-105) H 04/10/19 23:36 5.7 % (4-6) 04/09/19 04:54 Calcium 8.7 mg/dL (8.4-10.2) 04/09/19 04:54 Magnesium 2.00 mg/dL (1.7-2.3) 04/08/19 10:24 0.70 mg/dL (0.1-1.2) 04/08/19 10:24 < 0.2 mg/dL (0-0.2) 04/08/19 10:24 0.5 mg/dL 04/08/19 10:24 AST 11 units/L (5-40) 04/08/19 10:24 ALT 13 units/L (7-56) 04/08/19 10:24 75 units/L (35-129) 04/08/19 10:24 76 units/L (55-170) 04/08/19 10:24 CK-MB (CK-2) 1.2 ng/mL (0.0-4.0) 04/08/19 10:24 CK-MB (CK-2) Rel Index 1.5 (0-4) 04/08/19 10:24 < 0.010 ng/mL (0.00-0.029) 04/08/19 10:24 1.00 mg/dL (0.00-1.30) 04/10/19 13:50 NT-Pro-B Natriuret Pep 52.03 pg/mL (0-450) 04/08/19 10:24 6.8 g/dL (6.3-8.2) 04/08/19 10:24 3.7 g/dL (3.9-5) L 04/08/19 10:24 1.2 % 04/08/19 10:24 Triglycerides 306 mg/dL (2-149) H 04/11/19 04:58 Cholesterol 200 mg/dL (50-199) H 04/09/19 04:54 145 mg/dL (50-130) H 04/09/19 04:54 43 mg/dL (40-59) 04/09/19 04:54 4.65 % 04/09/19 04:54 TSH 0.119 mlU/mL (0.270-4.200) L 04/10/19 13:44 Free T4 0.93 ng/dL (0.76-1.46) 04/11/19 15:49 Yellow (Yellow) 04/08/19 Unknown Clear (Clear) 04/08/19 Unknown 5.0 (5.0-7.0) 04/08/19 Unknown Ur Specific [place] 1.011 (1.003-1.030) 04/08/19 Unknown <15 mg/dl mg/dL (Negative) 04/08/19 Unknown Neg mg/dL (Negative) 04/08/19 Unknown Neg mg/dL (Negative) 04/08/19 Unknown Neg (Negative) 04/08/19 Unknown Neg (Negative) 04/08/19 Unknown Neg (Negative) 04/08/19 Unknown < 2.0 mg/dL (<2.0) 04/08/19 Unknown Ur Leukocyte Esterase Tr (Negative) 04/08/19 Unknown 4.0 /HPF (0.0-6.0) 04/08/19 Unknown 2.0 /HPF (0.0-6.0) 04/08/19 Unknown Few /HPF 04/08/19 Unknown Active Medications - Current Medications Current Medications: Generic Name Dose Route Start Last Admin Trade Name Freq PRN Reason Stop Dose Admin Acetaminophen 650 mg 04/08/19 10:40 Tylenol PO Q4H PRN Pain MILD(1-3)/Fever >100.5/MAC Albuterol 2.5 mg 04/09/19 12:47 Proventil IH Q6HRT PRN Shortness Of Breath Calamine 1 applic 04/08/19 16:42 04/10/19 09:39 Calamine TP 1 applic PRN PRN Administration Allergic Reaction Enoxaparin Sodium 40 mg 04/09/19 10:00 04/13/19 10:06 Lovenox SUB-Q 40 mg QDAY JAIME Administration Famotidine 20 mg 04/12/19 10:00 04/13/19 10:06 Pepcid PO 20 mg BID JAIME Administration Haloperidol Lactate 5 mg 04/11/19 12:30 Haldol IV Q6H PRN Agitation Hydrophilic Ointment 1 applic 04/08/19 10:04 Vaseline Lip Therapy TP Q2HR PRN Dry Lips Labetalol HCl 10 mg 04/11/19 11:32 04/12/19 13:30 Normodyne IV 10 mg Q4H PRN Administration SBP > 170 Metoprolol Tartrate 12.5 mg 04/12/19 18:00 04/13/19 10:06 Lopressor PO 12.5 mg BID JAIME Administration Morphine Sulfate 2 mg 04/08/19 10:40 Morphine IV Q4H PRN Pain, Moderate (4-6) Multi-Ingred Cream/Lotion/Oil/Oint 1 applic 06/16/19 10:04 Artificial Tears Ophth Oint OU Q4HR PRN Dry Eye(s) Ondansetron HCl 4 mg 04/08/19 10:40 04/11/19 18:09 Zofran IV 4 mg Q8H PRN Administration Nausea And Vomiting Sodium Chloride 10 ml 04/08/19 22:00 04/13/19 10:07 Sodium Chloride Flush Syringe 10 Ml IV 10 ml BID JAIME Administration Sodium Chloride 10 ml 04/08/19 10:40 Sodium Chloride Flush Syringe 10 Ml IV PRN PRN LINE FLUSH Nutrition/Malnutrition Assess - Dietary Evaluation Nutrition/Malnutrition Findings: Nutrition Notes Start: 04/09/19 16:13 Freq: Status: Active Protocol: Document 04/13/19 08:44 LP (Rec: 04/13/19 08:58 LP [email or web address]) Nutrition Notes Initial or Follow up Reassessment Current Diagnosis Hypertension,Respiratory Failure Other Pertinent Diagnosis Angioedema Current Diet Mechanical soft cardiac Labs/Tests Reviewed Pertinent Medications Reviewed Height 5 ft 6 in Weight 87.3 kg [place] Body Weight (kg) 64.54 BMI 31.0 Subjective/Other Information Pt states eating well and has no nutrition questions at this time. Percent of energy/protein needs met: 100%/100% Burn Absent Trauma Absent #1 Nutrition Diagnosis Inadequate oral intake As Evidenced by Signs and Symptoms Pt consuming 100% of meals. Diagnosis Progress(for reassessment Improved documentation) Is patient on ventilator? No Is Patient Ambulatory and/or Out of Bed No REE-([facility]-confined to bed) 2038.272 Kcal/Kg value to use for calculation 20 Approximate Energy Requirements Using 1746 kcal/Kg Calculation Used for Recommendations Kcal/kg Additional Notes Protein needs are 70-87g (0.8- 1g/kg) Fluid needs are 1ml/kcal Nutrition Intervention Change Diet Order: Cardiac, Mech soft Goal #1 PO tolerance Goal #2 Continue to meet at least 80% of calorie and protein needs via PO intakes Anticipated Discharge Needs: Cardiac diet Follow-Up By: 04/20/19 Additional Comments Follow for stable intakes
--- NOTE | 2019-04-13 17:18 | Progress Note ---
Subjective - Reason for Consult Consult date: 04/13/19 Reason for consult: Psychiatric Follow-up Evaluation - Chief Complaint Chief complaint: Patient is a 44 year male that presents to the emergency room after being exposed to poison jenny. Psychiatry was consulted for autism with behavioral disturbances. During hospital course patient presented with worsening angioedema and airway compromise. Patient intubated for airway protection. Today patient is calm and guarded during the assessment. Speech is minimal. When asked why is he hospitalized, he states " I don't know." Thought content is impoverished. Limited cognition noted. Patient denies SI/HI's, A/vH's, and delusions. No agitation/ behavioral disturbances noted. Current Psychiatric Medications: Unable to Assess due to limited cognition. Past Psychiatric History: Unable to Assess due to limited cognition. Past Medication Trials: Unable to Assess due to limited cognition. History of Alcohol/Drug Abuse: Unable to Assess due to limited cognition. History of Trauma/Abuse: Unable to Assess due to limited cognition. Social History: Unable to Assess due to limited cognition. Family History of Psychiatric Illness/Substance Abuse: Unable to Assess due to limited cognition. Mental Status Exam - Vital signs Last Vital Signs Temp 98.0 F 04/13/19 15:35 Pulse 83 04/13/19 15:35 Resp 20 04/13/19 15:35 BP 144/92 04/13/19 15:35 Pulse Ox 96 04/13/19 15:35 - Exam Narrative exam: Mental Status Exam: Appearance: Clean- hospital gown Behavior: Calm, cooperative Speech: Slow, limited/minimal speech Mood: " I feel good" Affect: Constricted Thought Process: Impoverished Thought Content: Patient denies SI/HI's, A/VH's, and delusions Insight: Poor Judgment: Variable Assessment and Plan Impression: PPHx autism. Provider unable to fully assess due to limited cognition. Patient presents calm and cooperative during the assessment. Speech is minimal. Patient denies SI/HI's, A/VH's and delusions. He reports that his mother will return in the AM and he prefers for her to answer questions. Recommendation/Plan: 1. Will attempt to reassess in 24 hours. 2. Attempt to gain collateral to determine proper disposition. Disposition: Will reassess in 24 hours[address] Will staff with Dr[address] Noam Novoa.
[2019-04-14] MEDS: SODIUM CHLORIDE FLUSH SYRINGE 10 ML IV SCH ×2 (01:30→10:22)
[2019-04-14 09:35] VITALS: BP 147/99
--- NOTE | 2019-04-14 10:15 | Ultrasound Report ---
PROCEDURE: US THRYROID SCAN HISTORY: neck swelling FINDINGS: Real-time ultrasound of the thyroid was performed. The right lobe measures 5.7 x 2.8 x 4.2 cm. There is a midpole mixed solid and cystic nodule 4.9 x 4. 0 x 4.6 cm. There is a lower pole solid nodule 1.8 x 1.4 x 2.2 cm. There is an upper pole solid nodul e 0.9 cm. The left lobe measures 5.2 x 2.4 x 4.7 cm. There is an upper pole solid nodule 1.7 x 0.7 x 1.4 cm, a midpole solid nodule 2.5 x 2.3 x 2.8 cm, and a lower pole solid nodule 2.7 x 1.5 x 1.8 cm. The thyroid isthmus measures 0.6 cm which is within normal limits. IMPRESSION: Multiple thyroid nodules, consistent with goiter This document is electronically signed by Tyler Maldonado MD., April 14 2019 10:13:17 AM ET
[2019-04-14] MEDS: LOVENOX SUB-Q SCH (10:22)
[2019-04-14] MEDS: PEPCID PO SCH (10:22)
[2019-04-14] MEDS: LOPRESSOR PO SCH (10:22)
--- NOTE | 2019-04-14 13:49 | Discharge Summary ---
Providers - Providers Date of Admission: 04/08/19 12:54 Date of discharge: 04/14/19 Attending physician: PHIL FLOYD 04/08/19 10:04 Consult to Dietitian/Nutrition [CONS] Routine Physician Instructions: Reason For Exam: Reason for Consult: Evaluate nutritional intake 04/08/19 10:40 Consult to Physician [CONS] Routine Comment: ALEK MUSTAFA @1113 ADVD OF ICU CARE CONSULT Consulting Provider: BRENTON MUSTAFA Physician Instructions: Reason For Exam: icu care 04/10/19 14:49 Consult to Dietitian/Nutrition [CONS] Routine Physician Instructions: Reason For Exam: Reason for Consult: Write/Manage Tube Feeding 04/11/19 16:54 psychiatry consult [Consult to Mental Health] [CONS] Routine Reason For Exam: austism with behavioral disorders Place consult to:: Mental Health Notified:: Yes Phone number called:: [phone] Was contact made?: Yes If yes, spoke with:: Maribell Time called:: 16:56 04/12/19 10:38 Occupational Therapy Evaluate and Treat [CONS] Routine Comment: Reason For Exam: Debility Physical Therapy Evaluation and Treat [CONS] Routine Comment: Reason For Exam: Debility [facility] Condition: Stable Hospital course: Patient is a 44-year-old man with a history of Autism who presented with worsening angioedema and airway compromise, intubated for airway protection. Patient was exposed to poison jenny in the face and developed a severe allergic reaction. Patient self extubated himself even in restraints on 04/11/19 around 0745 am * 03/10/19 CT neck with contrast IMPRESSION: 1. Enlarged heterogeneous thyroid gland with the right lobe larger than the left and extending superiorly to the level of the angle of the mandible. This results in mass effect on the trachea wit h displacement to the left. 2. Endotracheal tube with tip in satisfactory position. 3. Congenital cervical canal stenosis. Thyroid mass, Right lobe (obvious right side goiter, mother had it, grand had it, etc...)with low TSH normal free t4, thyroglobin antibodies and total t3/total t3 are send out labs and they are pending. Acute respiratory failure on mechanical ventilator < 96 hours s/p self extubation on 04/11/19 at ~0745 am: supportive care, bipap on standby, 02 weaned off Anaphylaxis/angioedema: Steroids, H1 patel, H2 patel, improving Malignant hypertension with hypertensive emergency: optimize bp meds Autism: cont supportive care Urinary Retention resolved DVT prophylaxis with Lovenox Disposition: DC/TX-06 HOME [facility] Time spent for discharge: 34 minutes Core Measure Documentation - Palliative Care Palliative Care/ Comfort Measures: Not Applicable - Core Measures Any of the following diagnoses?: none - VTE Discharge Requirements Deep Vein Thrombosis/Pulmonary Embolism Present on Admission: No Has pt received <5 days of overlap therapy or INR<2.0: No Anticoagulant overlap therapy prescribed at discharge: No Contraindication No Overlap Therapy order at DC: Not Indicated Exam - Physical Exam Narrative exam: Gen: ill appearing NAD a/o HEENT: NCAT, EOMI, PERRL, OP ett Neck: supple, right thyromegaly with goiter CVS/Heart: RRR, normal S1S2, pulses present bilaterally Chest/Lungs: CTA B, Symmetrical chest expansion, good air entry bilaterally GI/Abdomen: soft, NTND, good bowel sounds, no guarding or rebound /Bladder: no suprapubic tenderness, no CVA or paraspinal tenderness Extermity/Skin: neck swelling, obvious rash face MSK: from x 4 Neuro: no focal deficits, observe walking to the nursing station unassisted without problems Psych: calm - Constitutional Vitals: Temp Pulse Resp BP Pulse Ox 98.5 F 80 16 147/99 99 04/14/19 08:25 04/14/19 08:25 04/14/19 08:25 04/14/19 08:25 04/14/19 08:25 Plan Activity: up only with assistance, other (no strenous acit) Diet: regular, advance as tolerated [facility] [Primary Care Provider] - 3-5 Days STEFANY MELENDREZ MD [Staff Physician] - 7 Days Forms: Discharge Signature Page Prescriptions: Metoprolol [Lopressor TAB] 12.5 mg PO BID #60 tablet
--- NOTE | 2019-04-14 14:06 | Progress Note ---
Assessment and Plan Acute respiratory failure, now on mechanical ventilation. Presumed angioedema. Obesity. Autism with behavioral disorders, intermittent agitation. Leukopenia at presentation. Respiratory acidosis at presentation. Hyperglycemia. Obesity. Hyperlipidemia - continue Seroquel 150 mg po bid - prn haldol - aspiration precautions - ST evaluation - CT of neck reveals heterogenous goiter; TSH is low; will get T4,T3 + US thyroid - continue to wean supplemental oxygen to keep O2 sats > 90% - prn bronchodilators with pulmonary hygiene per RT - Psych consult placed - continue accuchecks with glycemic control per SSI for target glucose of 140- 180 mg/dL - Maintenance of sleep -wake cycle - Mobility protocol for pressure ulcer prophylaxis - continue GI & VTE prophylaxis - Influenza and pneumonia vaccination per protocol - discharge planning ongoing concurrently .... re-evaluate in am & prn PROGNOSIS: GUARDED CONDITION: CRITICAL CODE STATUS: FULL CODE The high probability of a clinically significant, sudden or life-threatening deterioration of the [respiratory, neurology, renal] system(s) required my full and direct attention, intervention and personal management. The aggregate critical care time was [32] minutes without overlap. Time includes spent on; [x] Data Review and interpretation [x] Patient assessment and monitoring of vital signs [x] Documentation [x] Medication orders and management Subjective Date of service: 04/14/19 Principal diagnosis: Acute Hypoxemic Resp failure; Presumed angioedema; Obesity; Autism; Obesity Interval history: Patient is seen today for: Acute respiratory failure, now on mechanical ventilation; Presumed angioedema; Obesity; Autism with behavioral disorders, intermittent agitation; Leukopenia at presentation; Respiratory acidosis at presentation; Hyperglycemia; Obesity. Seen and examined at bedside; 24hour events reviewed; nursing and respiratory care staff consulted; no adverse overnight events reported to me; Objective Vital Signs - 12hr 04/14/19 04/14/19 04/14/19 04:13 07:52 08:25 Temperature 98.3 F 98.5 F Pulse Rate 83 86 80 Respiratory 18 16 Rate Blood Pressure 155/98 147/99 O2 Sat by Pulse 98 99 Oximetry Constitutional: appears uncomfortable, other (middle aged AAM with obvious neck swelling) Eyes: non-icteric ENT: oropharynx moist, other (extubated) Neck: supple, no lymphadenopathy, no JVD, other (likely enlarged thyroid gland with R>L neck swelling) Effort: mildly labored Ascultation: Bilateral: rhonchi Percussion: Bilateral: not dull Cardiovascular: regular rate and rhythm Gastrointestinal: normoactive bowel sounds, soft, non-tender, non-distended Integumentary: normal Extremities: no cyanosis, no edema, pulses normal, no ischemia or petechiae Neurologic: non-focal exam, pupils equal and round, CN II-XII normal, motor strength normal and Psychiatric: anxious CBC and BMP: 04/09/19 04:54 04/09/19 04:54 ABG, PT/INR, D-dimer: ABG POC ABG pH 7.376 (7.35-7.45) 04/11/19 04:53 POC ABG pCO2 54.2 (35-45) H 04/11/19 04:53 POC ABG pO2 82 (80-105) 04/11/19 04:53 POC ABG HCO3 31.8 (22-26 mml/L) 04/11/19 04:53 POC ABG Total CO2 33 (23-27mmol/L) 04/11/19 04:53 POC ABG O2 Sat 95 04/11/19 04:53 PT/INR, D-dimer PT 13.8 Sec. (12.2-14.9) 04/08/19 10:24 INR 1.09 (0.87-1.13) 04/08/19 10:24 Abnormal lab findings: Abnormal Labs 04/08/19 04/08/19 04/08/19 10:24 10:24 11:32 WBC 4.3 L RBC 5.06 H MCV 79 L MCH 27 L RDW 15.3 H Lymph # 0.7 L Seg Neutrophils % 74.8 H POC ABG pH 7.281 L POC ABG pCO2 56.3 H POC ABG pO2 155 H BUN Glucose 127 H POC Glucose Albumin 3.7 L Triglycerides Cholesterol LDL Cholesterol Direct TSH 04/08/19 04/08/19 04/09/19 15:59 18:44 04:26 WBC RBC MCV MCH RDW Lymph # Seg Neutrophils % POC ABG pH POC ABG pCO2 POC ABG pO2 116 H BUN Glucose POC Glucose 145 H 149 H Albumin Triglycerides Cholesterol LDL Cholesterol Direct TSH 04/09/19 04/09/19 04/10/19 04:54 04:54 05:25 WBC RBC MCV 80 L MCH 27 L RDW 15.7 H Lymph # 0.8 L Seg Neutrophils % 77.9 H POC ABG pH 7.243 L POC ABG pCO2 69.5 H POC ABG pO2 124 H BUN 21 H Glucose 158 H POC Glucose Albumin Triglycerides Cholesterol 200 H LDL Cholesterol Direct 145 H TSH 04/10/19 04/10/19 04/10/19 11:04 13:44 23:36 WBC RBC MCV MCH RDW Lymph # Seg Neutrophils % POC ABG pH 7.347 L POC ABG pCO2 54.0 H POC ABG pO2 107 H BUN Glucose POC Glucose 131 H Albumin Triglycerides Cholesterol LDL Cholesterol Direct TSH 0.119 L 04/11/19 04/11/19 04:53 04:58 WBC RBC MCV MCH RDW Lymph # Seg Neutrophils % POC ABG pH POC ABG pCO2 54.2 H POC ABG pO2 BUN Glucose POC Glucose Albumin Triglycerides 306 H Cholesterol LDL Cholesterol Direct TSH Allied health notes reviewed: nursing
== END 2019-04-14 14:15 | disposition home health service (06) | DRG 208 ==
LOC: ED 07:38 → CC1 12:54 → 4A 04-12 18:35
PROVIDERS: ADMIT Internal Medicine; ATTEND Internal Medicine
PROC: 5A1945Z Respiratory Ventilation, 24-96 Consecutive Hours (ICD-10-PCS; principal; 2019-04-08)
PROC: 0BH18EZ Insertion of Endotracheal Airway into Trachea, Via Natural or Artificial Opening Endoscopic (ICD-10-PCS; 2019-04-08)
PROC: 4A033R1 Measurement of Arterial Saturation, Peripheral, Percutaneous Approach (ICD-10-PCS; 2019-04-08)
DX: J96.01 Acute respiratory failure with hypoxia (principal); T78.3XXA Angioneurotic edema, initial encounter; I16.1 Hypertensive emergency; F84.0 Autistic disorder; E66.9 Obesity, unspecified; D72.819 Decreased white blood cell count, unspecified; E87.2 Acidosis; R73.9 Hyperglycemia, unspecified; E78.5 Hyperlipidemia, unspecified; E07.9 Disorder of thyroid, unspecified; R33.9 Retention of urine, unspecified; Z68.31 Body mass index [BMI] 31.0-31.9, adult
CPT/HCPCS: 36415; 36600; 70491; 71045; 74018; 76536; 80048; 80061; 80076; 81001; 82550; 82553; 82803; 82962; 83036; 83735; 83880; 84439; 84443; 84478; 84480; 84481; 84484; 85025; 85610; 85730; 86140; 86800; 87070; 87086; 87205; 93005; 93010; 94002; 94003; 94760; 99292; G0378; J0330; J0360; J1100; J1200; J1630; J1650; J2250; J2270; J2405; J2704; J2920; J2930; J3010; Q9967